=== PATIENT | female | born 1960 | race African-American/Black ===

== ENCOUNTER 2017-03-05 19:09 | Emergency (ER) | payer OTHER, MEDICAID ==
[~2017-03-05] VITALS: Ht 172.7 cm; Wt 99.0 kg
[2017-03-05 19:11] VITALS: BP 134/64; PULSE 91; RESP 16; TEMP 99.7; O2SAT 100
--- NOTE | 2017-03-05 21:37 | PD ---
Physical Exam Time Seen by Provider: 21:35 Narrative 56 y/o female here for evaluation of abdominal pain for months, worse for 2 days. Hx. of liver cancer, she reports chronic abdominal pain. Vital signs reviewed. Seen at triage desk. Awaiting bed placement. Data Data Last Documented VS Vital Signs Date Time Temp Pulse Resp B/P Pulse Ox O2 Delivery O2 Flow Rate FiO2 03/05/17 19:11 99.7 91 16 134/64 100 Room Air [facility] Medical Record Reviewed: Yes Supervised Visit with BRENNA: No Huy Polo Mar 05, 2017 21:37
--- NOTE | 2017-03-05 21:53 | PD ---
HPI Chief Complaint: Abdominal Pain Time Seen by Provider: 21:45 Travel History International Travel<30 days: No Contact w/Intl Traveler<30days: No Traveled to known affect area: No History of Present Illness HPI This is a 56-year-old female who has stage IV liver cancer who follows with Dr. Velazquez who presents to the emergency department with abdominal discomfort that's been worsening this evening. She says that she's been having abdominal pain like this for about 4 months and she takes oxycodone at home for it. Over the past 2 days she's been having difficulty controlling it with just her pain medicines. She did feel nauseous earlier today. She denies any fevers or chills. The pain is constant, cramping, worse on the right side, and worse with laying down. She most recently received chemotherapy 2 weeks ago. PFSH Past Medical History Narrative Medical stage IV liver cancer per patient Social History Tobacco Use: No Allergies-Medications (Allergen,Severity, Reaction): Coded Allergies: Ambien (Verified Allergy, Severe, Hallucinations, 03/05/17) Morphine (Verified Allergy, Intermediate, Hallucinations, 03/05/17) Contrast Media (Verified Allergy, Unknown, Anaphylaxis, 03/05/17) Reported Meds & Prescriptions Reported Meds & Active Scripts Active Reported Zofran (Ondansetron HCl) 8 Mg Tab 8 Mg PO DIRECTED Xanax (Alprazolam) Unknown Strength Tab Unknown Dose PO BID PRN Oxycodone (Oxycodone HCl) 30 Mg Tab 30 Mg PO Q8H PRN Ranitidine (Ranitidine HCl) 150 Mg Tab 150 Mg PO BID Lisinopril 20 Mg Tab 20 Mg PO DAILY Hycamtin (Topotecan) 1 Mg Cap 3.1 Mg PO DAILY Lexapro (Escitalopram Oxalate) 10 Mg Tab 10 Mg PO DAILY Review of Systems Except as stated in HPI: all other systems reviewed are Neg Physical Exam Narrative GENERAL:Well appearing, no acute distress SKIN: Focused skin assessment warm and dry. HEAD: Atraumatic. Normocephalic. EYES: Pupils equal and round. No injection or drainage. ENT: Moist mucous membranes NECK: Trachea midline. CARDIOVASCULAR: Regular rate and rhythm. No murmur appreciated.Port right upper chest wall RESPIRATORY: Clear to auscultation. Breath sounds equal bilaterally. GASTROINTESTINAL: Abdomen soft, tender to palpation in the right upper quadrant and right lower quadrant with guarding. MUSCULOSKELETAL: No obvious deformities. NEUROLOGICAL: Awake and alert. No obvious cranial nerve deficits. Moving all extremities PSYCHIATRIC: Appropriate mood and affect; insight and judgment normal. Data Data Last Documented VS Vital Signs Date Time Temp Pulse Resp B/P Pulse Ox O2 Delivery O2 Flow Rate FiO2 03/05/17 22:11 100 Room Air 03/05/17 19:11 99.7 91 16 134/64 Orders Complete Blood Count With Diff (03/05/17 21:51) Comprehensive Metabolic Panel (03/05/17 21:51) Lipase (03/05/17 21:51) Urinalysis - C+S If Indicated (03/05/17 21:51) Iv Access Insert/Monitor (03/05/17 21:51) Ecg Monitoring (03/05/17 21:51) Oximetry (03/05/17 21:51) Sodium Chloride 0.9% Flush (Ns Flush) (03/05/17 22:00) Hydromorphone Pf Inj (Dilaudid Pf Inj) (03/05/17 22:00) Ondansetron Inj (Zofran Inj) (03/05/17 22:00) Urine Culture (03/05/17 22:05) Lactic Acid (03/05/17 23:12) Blood Culture (03/05/17 23:12) Ceftriaxone Inj (Rocephin Inj) (03/05/17 23:15) Ct Abd/Pel W/O Iv Contrast (03/05/17 ) Hydromorphone Pf Inj (Dilaudid Pf Inj) (03/06/17 00:00) Labs Laboratory Tests Test 03/05/17 03/05/17 03/05/17 22:00 22:05 23:35 White Blood Count 16.0 TH/MM3 Red Blood Count 2.76 MIL/MM3 Hemoglobin 7.7 GM/DL Hematocrit 24.7 % Mean Corpuscular Volume 89.4 FL Mean Corpuscular Hemoglobin 27.9 PG Mean Corpuscular Hemoglobin 31.3 % Concent Red Cell Distribution Width 21.8 % Platelet Count 139 TH/MM3 Mean Platelet Volume 9.1 FL Neutrophils (%) (Auto) 76.8 % Lymphocytes (%) (Auto) 10.6 % Monocytes (%) (Auto) 12.2 % Eosinophils (%) (Auto) 0.2 % Basophils (%) (Auto) 0.2 % Neutrophils # (Auto) 12.3 TH/MM3 Lymphocytes # (Auto) 1.7 TH/MM3 Monocytes # (Auto) 1.9 TH/MM3 Eosinophils # (Auto) 0.0 TH/MM3 Basophils # (Auto) 0.0 TH/MM3 CBC Comment DIFF FINAL Differential Comment Sodium Level 136 MEQ/L Potassium Level 3.8 MEQ/L Chloride Level 102 MEQ/L Carbon Dioxide Level 23.5 MEQ/L Anion Gap 11 MEQ/L Blood Urea Nitrogen 14 MG/DL Creatinine 1.06 MG/DL Estimat Glomerular Filtration 64 ML/MIN Rate Random Glucose 118 MG/DL Calcium Level 9.3 MG/DL Total Bilirubin 0.3 MG/DL Aspartate Amino Transf 29 U/L (AST/SGOT) Alanine Aminotransferase 13 U/L (ALT/SGPT) Alkaline Phosphatase 150 U/L Total Protein 7.8 GM/DL Albumin 2.7 GM/DL Lipase 88 U/L Urine Color YELLOW Urine Turbidity HAZY Urine pH 7.0 Urine Specific [place] 1.019 Urine Protein TRACE mg/dL Urine Glucose (UA) NEG mg/dL Urine Ketones NEG mg/dL Urine Occult Blood NEG Urine Nitrite NEG Urine Bilirubin NEG Urine Urobilinogen LESS THAN 2.0 MG/DL Urine Leukocyte Esterase SMALL Urine RBC 2 /hpf Urine WBC 9 /hpf Urine Squamous Epithelial 1 /hpf Cells Urine Bacteria RARE /hpf Urine Hyaline Casts 1 /lpf Urine Mucus FEW /lpf Microscopic Urinalysis Comment CULTURE INDICATED Lactic Acid Level 2.9 mmol/L MDM Medical Decision Making Medical Screen Exam Complete: Yes Emergency Medical Condition: Yes Medical Record Reviewed: Yes (patient receives chemotherapy with Dr. Velazquez and last received chemotherapy 2 weeks ago) Interpretation(s) Temperature is 99.7, pulse is 91 Normotensive Leukocytosis 76% neutrophils Lactic acid is 2.9 Urinalysis: 9 white blood cells Last 24 hours Impressions Abdomen/Pelvis CT 03/05/17 0000 Signed Impressions: Service Date/Time: , March 05, 2017 23:16 - CONCLUSION: 1. There are multiple hypodense liver masses identified in this patient with history of known liver malignancy as well as regional lymphadenopathy. 2. No inflammatory changes are seen within the abdomen or pelvis. 3. Diverticulosis without diverticulitis. 4. Small fat containing umbilical hernia. Jan Wright MD Differential Diagnosis Bowel obstruction, liver cancer, chronic pain, spontaneous bacterial peritonitis , appendicitis, colitis Narrative Course This is a 56-year-old female who has a history of stage IV liver cancer who presents to the emergency department reporting increasing abdominal pain. She' s been having abdominal pain for months. She takes 30 mg of oxycodone 3 times a day for her pain. Her pain is similar to prior but worse. She's not reporting any fevers or infectious symptoms. Incidentally she does have a temperature of 99.7 and a leukocytosis of 16 which is increased from her prior labs several days ago. She does have a lactic acid of 2.9 and she has a mild urinary tract infection. CT abdomen and pelvis demonstrates liver cancer but no other acute process. I had a long conversation with the patient regarding inpatient versus outpatient management. She's not neutropenic so I think it would be reasonable for her to be managed as an outpatient. She really wants to go home and doesn't want to stay in the hospital. She looks really well and she came in more for her chronic pain exacerbation than any concern for infectious symptoms. Patient was given a dose of IV antibiotics here in the emergency department and a liter of IV hydration. I think it's reasonable to discharge her on antibiotics with strict return instructions if she starts developing fever or new symptoms at home. Diagnosis Primary Impression: Urinary tract infection Qualified Code: N30.00 - Acute cystitis without hematuria Additional Impression: Pain of metastatic malignancy Patient Instructions: General Instructions Additional Instructions: If you develop fever, persistent vomiting, back pain, or inability to eat return to the emergency department as your urine infection may have progressed to a kidney infection. Complete your antibiotics as prescribed. Stay well hydrated with Gatorade or water. Follow-up with Dr. Velazquez as soon as possible for a checkup. Med/Other Pt SpecificInfo: Prescription(s) given Scripts Ciprofloxacin 500 Mg [id number] Mg PO BID 7 Days Prov:Mónica Chicas MD 03/06/17 Disposition: 01 DISCHARGE HOME Condition: Stable Mónica Chicas MD Mar 05, 2017 21:53
[2017-03-05] MEDS ORDERED: SODIUM CHLORIDE 0.9% FLUSH 10 ML FLUSH IV FLUSH PRN (22:00)
[2017-03-05] MEDS ORDERED: HYDROmorphone HCL PF 1 MG/ML VIAL IV PUSH ONE (22:00)
[2017-03-05] MEDS ORDERED: ONDANSETRON HCL 4 MG/2 ML VIAL IV PUSH ONE (22:00)
[2017-03-05] MEDS ORDERED: LISI-515 PO (22:05)
[2017-03-05] MEDS ORDERED: HYCA1CAP PO (22:05)
[2017-03-05] MEDS ORDERED: OXYC30TA PO (22:05)
[2017-03-05] MEDS ORDERED: ALPR.25 PO (22:05)
[2017-03-05] MEDS ORDERED: ZOFR8TAB PO (22:05)
[2017-03-05] MEDS ORDERED: RANI150T PO (22:05)
[2017-03-05] MEDS ORDERED: LEXA10TA PO (22:05)
[2017-03-05 22:11] VITALS: O2SAT 100
[2017-03-05 22:46] LABS: AUTOMATED NEUTROPHIL # 12.3 TH/MM3 (1.8-7.7); BASOPHIL % 0.2 % (0.0-2.0); EOSINOPHIL % 0.2 % (0.0-4.0); HEMATOCRIT 24.7 % (35.0-46.0); HEMO FLAGS DIFF FINAL; LYMPH % 10.6 % (9.0-44.0); LYMPHOCYTE # 1.7 TH/MM3 (1.0-4.8); MEAN CELL VOLUME 89.4 FL (80.0-100.0); MEAN CORPUSCULAR HEMOGLOBIN 27.9 PG (27.0-34.0); MEAN CORPUSCULAR HGB CONC 31.3 % (32.0-36.0); MONO % 12.2 % (0.0-8.0); NEUT % 76.8 % (16.0-70.0); PLATELET COUNT 139 TH/MM3 (150-450); RED BLOOD COUNT 2.76 MIL/MM3 (4.00-5.30); RED CELL DISTRIBUTION WIDTH 21.8 % (11.6-17.2)
[2017-03-05 22:53] LABS: BACTERIA, URINE RARE /hpf; BLOOD, URINE NEG (NEG); COMMENT (UR) CULTURE INDICATED; CULTURE IF INDICATED CULTURE INDICATED; GLUCOSE,URINE NEG (NEG); HYALINE CAST, URINE 1 /lpf (RARE); KETONE, URINE NEG (NEG); MUCUS URINE FEW /lpf (OCC); NITRITE,URINE NEG (NEG); SQUAMOUS EPITHELIAL CELL URINE 1 /hpf (0-5); URINE COLOR YELLOW (YELLW/STRAW)
[2017-03-05 23:00] LABS: ANION GAP 11 MEQ/L (5-15); AST (GOT) 29 U/L (15-37); BICARBONATE 23.5 MEQ/L (21.0-32.0); BLOOD UREA NITROGEN 14 MG/DL (7-18); CHLORIDE 102 MEQ/L (98-107); GLOMERULAR FILTRATION RATE 64 ML/MIN (>89); POTASSIUM 3.8 MEQ/L (3.5-5.1); SODIUM (NA) 136 MEQ/L (136-145)
[2017-03-05 23:01] LABS: ALT (GPT) 13 U/L (10-53)
[2017-03-05 23:03] LABS: ALKALINE PHOSPHATASE 150 U/L (45-117); TOTAL BILIRUBIN ADULT 0.3 MG/DL (0.2-1.0)
[2017-03-05] MEDS ORDERED: cefTRIAXone INJ 1,000 MG in SODIUM CHLORIDE 0.9% INJ 100 ML IV ONE (23:15)
--- NOTE | 2017-03-05 23:46 | RADRPT ---
EXAM DATE/TIME: 03/05/2017 23:16 [facility] COMPARISON: No previous studies available for comparison. INDICATIONS : Diffuse abdominal pain. ORAL CONTRAST: No oral contrast ingested. RADIATION DOSE: 11.42 CTDIvol (mGy) MEDICAL HISTORY : Carcinoma, liver. SURGICAL HISTORY : None. ENCOUNTER: Initial ACUITY: 1 month PAIN SCALE: 5/10 LOCATION: All quadrants. TECHNIQUE: Volumetric scanning of the abdomen and pelvis was performed. Using automated exposure control and ad justment of the mA and/or kV according to patient size, radiation dose was kept as low as reasonably achievable to obtain optimal diagnostic quality images. DICOM format image data is available electro nically for review and comparison. FINDINGS: There are degenerative changes of the spine. The lung windows demonstrate a noncalcified nodule in th e right lower lobe measuring 3.7 mm on image 7, right middle lobe 2.8 mm nodule on image 5. There is a focal suspected at the right lung base with focal herniation of the dome of the liver seen best on coronal image 78 measuring 2.8 cm in transverse dimension on axial image 11. There are multiple ill-d efined low-attenuation mass is seen throughout the liver including ill-defined low-density in the rig ht lobe posteriorly measuring up to 9 x 6 cm. There is also cardiophrenic adenopathy measuring up to 2.2 cm in short axis dimension, and adenopathy at the esophageal hiatus measuring up to 1.6 x 3.3 cm. Aortocaval 1.1 cm short axis adenopathy identified. Urinary bladder is unremarkable. The patient is status post hysterectomy. There is diverticulosis of the sigmoid and descending colon without evidenc e of diverticulitis. Small fat containing umbilical hernia. Appendix normal. There are no adnexal mas ses. Atherosclerotic calcification of the aorta and iliac vessels are noted. CONCLUSION: 1. There are multiple hypodense liver masses identified in this patient with history of known liver m alignancy as well as regional lymphadenopathy. 2. No inflammatory changes are seen within the abdomen or pelvis. 3. Diverticulosis without diverticulitis. 4. Small fat containing umbilical hernia. Jan Wright MD on March 05, 2017 at 23:41 Board Certified Radiologist. This report was verified electronically.
[2017-03-06] MEDS ORDERED: HYDROmorphone HCL PF 1 MG/ML VIAL IV PUSH ONE
[2017-03-06] MEDS ORDERED: CIPR500T2 PO (00:29)
[2017-03-06] MEDS ORDERED: SODIUM CHLOR 0.9% 1000 ML INJ 1,000 ML IV SCH (00:30)
[2017-03-06 01:19] VITALS: BP 102/66
== END 2017-03-06 01:35 | disposition home or self-care (01) ==
LOC: NEPC 19:09
DX: N39.0 Urinary tract infection, site not specified (principal); R10.9 Unspecified abdominal pain; C22.8 Malignant neoplasm of liver, primary, unspecified as to type; R59.1 Generalized enlarged lymph nodes; K57.90 Diverticulosis of intestine, part unspecified, without perforation or abscess without bleeding; K42.9 Umbilical hernia without obstruction or gangrene; Z79.899 Other long term (current) drug therapy
CPT/HCPCS: 74176; 80053; 81001; 83605; 83690; 85025; 87040; 87086; 96361; 96365; 96375; 96376; 99285; J0696; J1170; J1642; J2405; J7030

== ENCOUNTER 2017-09-05 02:33 | Inpatient (IN) | payer OTHER, MEDICAID, MEDICARE ==
[2017-09-05] VITALS (7 sets, daily range): BP systolic 117–152; BP diastolic 57–99; PULSE 60–112; RESP 16–18; TEMP 96.5–98.6; O2SAT 96–99
[~2017-09-05 02:33] MED LIST: ALPR.25 PO; CIPR500T2 PO; HYCA1CAP PO; LEXA10TA PO; LISI-515 PO; OXYC30TA PO; RANI150T PO; ZOFR8TAB PO
[2017-09-05] MEDS ORDERED: PROT40TA PO (03:09)
--- NOTE | 2017-09-05 05:43 | PD ---
HPI Chief Complaint: Abdominal Pain Time Seen by Provider: 05:38 Travel History International Travel<30 days: No Contact w/Intl Traveler<30days: No Traveled to known affect area: No History of Present Illness HPI 57 year-old female presents to the emergency department by private transportation the care of family for evaluation of abdominal pain. Patient has had abdominal pain 3 years which is intermittent in nature. Patient was diagnosed 3 years ago with metastatic liver cancer with unknown primary. Patient has decided not to have chemotherapy. Patient is followed by oncologist Dr. Velazquez. Daughter this morning when patient complained of abdominal pain administered her pain medication because her pain was not immediately or quickly relieve she decided to come to the emergency room. Daughter is also concerned because she thinks mother was a little bit confused and has had elevated ammonia levels in the past or urinary tract infections in the past for similar symptoms so decided to bring her to the emergency room. Patient currently feels well is desirous of being discharged to home but is agreeable to have lab work obtained. Patient reports current discomfort is improved from presentation discomfort 9/10 in intensity. Patient so requesting pain medication. PFSH Past Medical History Narrative Medical Metastatic liver/hepatic cancer with unknown primary, hypertension and anxiety, exploratory laparotomy, rare alcohol use; nursing notes reviewed Cancer: Yes (liver) Diminished Hearing: No Past Surgical History Other Surgery: Yes (EX LAP) Social History Alcohol Use: Yes (rare) Tobacco Use: No Substance Use: No Allergies-Medications (Allergen,Severity, Reaction): Coded Allergies: zolpidem (Unverified Allergy, Severe, Hallucinations, 09/05/17) morphine (Unverified Allergy, Intermediate, Hallucinations, 09/05/17) diatrizoate meglumine (Unverified Allergy, Unknown, Anaphylaxis, 09/05/17) gadobenic acid (Unverified Allergy, Unknown, Anaphylaxis, 09/05/17) gadodiamide (Unverified Allergy, Unknown, Anaphylaxis, 09/05/17) gadoteridol (Unverified Allergy, Unknown, Anaphylaxis, 09/05/17) iodixanol (Unverified Allergy, Unknown, Anaphylaxis, 09/05/17) iohexol (Unverified Allergy, Unknown, Anaphylaxis, 09/05/17) Reported Meds & Prescriptions Reported Meds & Active Scripts Active Reported Protonix (Pantoprazole Sodium) 40 Mg Tab 40 Mg PO DAILY Xanax (Alprazolam) Unknown Strength Tab Unknown Dose PO BID PRN Oxycodone (Oxycodone HCl) 30 Mg Tab 30 Mg PO Q8H PRN Lisinopril 20 Mg Tab 20 Mg PO DAILY Lexapro (Escitalopram Oxalate) 10 Mg Tab 10 Mg PO DAILY Review of Systems Except as stated in HPI: all other systems reviewed are Neg General / Constitutional: No: Fever, Chills HENT: No: Congestion Cardiovascular: No: Chest Pain or Discomfort Gastrointestinal: Positive: Abdominal Pain, No: Nausea, Vomiting Genitourinary: No: Urgency, Frequency, Dysuria, Nocturia Musculoskeletal: No: Myalgias, Arthralgias Skin: No Rash Neurologic: No: Weakness Psychiatric: Positive: Anxiety Hematologic/Lymphatic: No: Easy Bruising Physical Exam Narrative GENERAL: Well-developed well-nourished female in no acute distress no respiratory distress SKIN: Warm and dry. HEAD: Normocephalic. EYES: No scleral icterus. No injection or drainage. NECK: Supple, trachea midline. No JVD or lymphadenopathy. CARDIOVASCULAR: Regular rate and rhythm without murmurs, gallops, or rubs. RESPIRATORY: Breath sounds equal bilaterally. No accessory muscle use. GASTROINTESTINAL: Abdomen soft, non-tender, hepatomegaly, nondistended. MUSCULOSKELETAL: No cyanosis, or edema. BACK: Nontender without obvious deformity. No CVA tenderness. Data Data Last Documented VS Vital Signs Date Time Temp Pulse Resp B/P (MAP) Pulse Ox O2 Delivery O2 Flow Rate FiO2 09/05/17 02:35 98.3 112 18 140/65 (90) 98 Orders Orders Complete Blood Count With Diff (09/05/17 05:10) Comprehensive Metabolic Panel (09/05/17 05:10) Urinalysis - C+S If Indicated (09/05/17 05:10) Iv Access Insert/Monitor (09/05/17 05:10) Oxygen Administration (09/05/17 05:10) Oximetry (09/05/17 05:10) Lipase (09/05/17 05:10) Ammonia (09/05/17 05:10) Ondansetron Inj (Zofran Inj) (09/05/17 05:45) Hydromorphone Pf Inj (Dilaudid Pf Inj) (09/05/17 05:45) Ct Abd/Pel W/O Iv Contrast (09/05/17 ) Labs Laboratory Tests Test 09/05/17 05:15 09/05/17 05:20 White Blood Count 16.7 TH/MM3 Red Blood Count 2.86 MIL/MM3 Hemoglobin 9.6 GM/DL Hematocrit 29.5 % Mean Corpuscular Volume 102.9 FL Mean Corpuscular Hemoglobin 33.6 PG Mean Corpuscular Hemoglobin Concent 32.7 % Red Cell Distribution Width 21.9 % Platelet Count 132 TH/MM3 Mean Platelet Volume 9.3 FL Neutrophils (%) (Auto) 81.3 % Lymphocytes (%) (Auto) 8.0 % Monocytes (%) (Auto) 9.4 % Eosinophils (%) (Auto) 1.1 % Basophils (%) (Auto) 0.2 % Neutrophils # (Auto) 13.6 TH/MM3 Lymphocytes # (Auto) 1.3 TH/MM3 Monocytes # (Auto) 1.6 TH/MM3 Eosinophils # (Auto) 0.2 TH/MM3 Basophils # (Auto) 0.0 TH/MM3 CBC Comment DIFF FINAL Differential Comment Blood Urea Nitrogen 7 MG/DL Creatinine 0.66 MG/DL Random Glucose 98 MG/DL Total Protein 9.3 GM/DL Albumin 2.4 GM/DL Calcium Level 8.9 MG/DL Alkaline Phosphatase 296 U/L Aspartate Amino Transf (AST/SGOT) 57 U/L Alanine Aminotransferase (ALT/SGPT) 11 U/L Total Bilirubin 0.9 MG/DL Sodium Level 136 MEQ/L Potassium Level 3.6 MEQ/L Chloride Level 104 MEQ/L Carbon Dioxide Level 24.7 MEQ/L Anion Gap 7 MEQ/L Estimat Glomerular Filtration Rate 111 ML/MIN Ammonia 32 MCMOL/L Lipase 128 U/L Urine Color YELLOW Urine Turbidity CLEAR Urine pH 6.0 Urine Specific [place] 1.033 Urine Protein 30 mg/dL Urine Glucose (UA) NEG mg/dL Urine Ketones NEG mg/dL Urine Occult Blood NEG Urine Nitrite NEG Urine Bilirubin NEG Urine Urobilinogen 2.0 MG/DL Urine Leukocyte Esterase NEG Urine RBC 1 /hpf Urine WBC 1 /hpf Urine Squamous Epithelial Cells <1 /hpf Urine Hyaline Casts 1 /lpf Urine Mucus FEW /lpf Microscopic Urinalysis Comment CULT NOT INDICATED MDM Medical Decision Making Medical Screen Exam Complete: Yes Emergency Medical Condition: Yes Medical Record Reviewed: Yes Interpretation(s) CBC & BMP Diagram 1/13/18 05:15 Total Protein 9.3 H, Albumin 2.4 L, Calcium Level 8.9, Alkaline Phosphatase 296 H, Aspartate Amino Transf (AST/SGOT) 57 H, Alanine Aminotransferase (ALT/SGPT) 11, Total Bilirubin 0.9 Vital Signs Date Time Temp Pulse Resp B/P (MAP) Pulse Ox O2 Delivery O2 Flow Rate FiO2 09/05/17 02:35 98.3 112 18 140/65 (90) 98 ua: wnl nh3: 32, not elevated Differential Diagnosis Hyperammonemia, UTI, sepsis, bowel obstruction, viscus perforation, diverticulitis Narrative Course IV access obtained specimens collected and sent for resulting patient administered Zofran 4 mg IV and Dilaudid 0.5 mg IV Patient identified to have leukocytosis of unclear etiology with unremarkable urinalysis Will proceed with CT abdomen and pelvis if this does not identify specific source of white count suspect that this may be a stress reaction and patient has chronic abdominal pain 3 years and pain is actually improved at this time. Diagnosis Primary Impression: Pain of metastatic malignancy Shanique Dodge MD Sep 05, 2017 05:43
[2017-09-05] MEDS ORDERED: ONDANSETRON HCL 4 MG/2 ML VIAL IV PUSH ONE ×2 (05:45→09:00)
[2017-09-05] MEDS ORDERED: HYDROmorphone HCL PF 1 MG/ML VIAL IV PUSH ONE ×2 (05:45→11:30)
[2017-09-05 06:06] LABS: AUTOMATED NEUTROPHIL # 13.6 TH/MM3 (1.8-7.7); BASOPHIL % 0.2 % (0.0-2.0); EOSINOPHIL # 0.2 TH/MM3 (0-0.4); EOSINOPHIL % 1.1 % (0.0-4.0); HEMATOCRIT 29.5 % (35.0-46.0); HEMOGLOBIN 9.6 GM/DL (11.6-15.3); LYMPHOCYTE # 1.3 TH/MM3 (1.0-4.8); MEAN CELL VOLUME 102.9 FL (80.0-100.0); MEAN CORPUSCULAR HEMOGLOBIN 33.6 PG (27.0-34.0); MEAN CORPUSCULAR HGB CONC 32.7 % (32.0-36.0); MEAN PLATELET VOLUME 9.3 FL (7.0-11.0); MONO % 9.4 % (0.0-8.0); MONOCYTE # 1.6 TH/MM3 (0-0.9); NEUT % 81.3 % (16.0-70.0); PLATELET COUNT 132 TH/MM3 (150-450); RED BLOOD COUNT 2.86 MIL/MM3 (4.00-5.30); RED CELL DISTRIBUTION WIDTH 21.9 % (11.6-17.2); WHITE BLOOD COUNT 16.7 TH/MM3 (4.0-11.0)
[2017-09-05 06:23] LABS: BILIRUBIN, URINE NEG (NEG); BLOOD, URINE NEG (NEG); GLUCOSE,URINE NEG (NEG); HYALINE CAST, URINE 1 /lpf (RARE); KETONE, URINE NEG (NEG); MUCUS URINE FEW /lpf (OCC); NITRITE,URINE NEG (NEG); SQUAMOUS EPITHELIAL CELL URINE <1 /hpf (0-5); URINE COLOR YELLOW (YELLW/STRAW); URINE LEUKOCYTE ESTERASE NEG (NEG)
[2017-09-05 06:32] LABS: ALBUMIN 2.4 GM/DL (3.4-5.0); ALT (GPT) 11 U/L (10-53); AST (GOT) 57 U/L (15-37); BICARBONATE 24.7 MEQ/L (21.0-32.0); BLOOD UREA NITROGEN 7 MG/DL (7-18); CALCIUM 8.9 MG/DL (8.5-10.1); CHLORIDE 104 MEQ/L (98-107); CREATININE 0.66 MG/DL (0.50-1.00); GLOMERULAR FILTRATION RATE 111 ML/MIN (>89); GLUCOSE,RANDOM 98 MG/DL (74-106); LIPASE 128 U/L (73-393); SODIUM (NA) 136 MEQ/L (136-145)
[2017-09-05 06:34] LABS: ALKALINE PHOSPHATASE 296 U/L (45-117); TOTAL BILIRUBIN ADULT 0.9 MG/DL (0.2-1.0); TOTAL PROTEIN 9.3 GM/DL (6.4-8.2)
--- NOTE | 2017-09-05 08:04 | RADRPT ---
EXAM DATE/TIME: 09/05/2017 07:13 [facility] COMPARISON: CT ABDOMEN & PELVIS W/O CONTRAST, March 05, 2017, 23:16. INDICATIONS : Diffuse abdominal pain; history of liver metastases with no treatment. ORAL CONTRAST: No oral contrast ingested. RADIATION DOSE: 9.03 CTDIvol (mGy) MEDICAL HISTORY : Carcinoma, not otherwise specified. Metastatic, liver. SURGICAL HISTORY : None. ENCOUNTER: Initial ACUITY: 2 days PAIN SCALE: 8/10 LOCATION: Bilateral abdomen. TECHNIQUE: Volumetric scanning of the abdomen and pelvis was performed. Using automated exposure control and ad justment of the mA and/or kV according to patient size, radiation dose was kept as low as reasonably achievable to obtain optimal diagnostic quality images. DICOM format image data is available electro nically for review and comparison. FINDINGS: LOWER LUNGS: Mild patchy opacity of the lung bases. Several subcentimeter pulmonary nodular densities are identifi ed including 6 mm nodule in the anterior right lung base on image #10, 4 mm nodular density in medial right lower lobe on image #13 and 4 mm nodular density in the left lower lobe on image #5. Pericardi ophrenic lymph node now measures 2.7 cm compared to 2.2 cm on the prior study. LIVER: Multiple hepatic masses again identified. Findings are very similar to the prior study of 03/05/2017. Mass in the central left lobe on image #15 measures 5.4 cm compared to 5.5 cm on the prior study. Con fluent mass in the posterior right lobe measures 9.6 cm in AP dimension and also measured 9.6 cm on t he prior study. Focal eventration of the hemidiaphragm is again seen. Distended gallbladder is filled with contrast. SPLEEN: Normal size without lesion. PANCREAS: Within normal limits. KIDNEYS: Left upper pole renal cortical calcification unchanged. No evidence of hydronephrosis or right or lef t. ADRENAL GLANDS: Within normal limits. VASCULAR: There is no aortic aneurysm. BOWEL/MESENTERY: No evidence of bowel dilatation. No free air. Appendix within normal limits. Small amount of ascites in the upper quadrants bilaterally. ABDOMINAL WALL: Within normal limits. RETROPERITONEUM: Enlarged portacaval lymph node measures 1.6 cm compared to 1.1 cm on prior study. BLADDER: No wall thickening or mass. REPRODUCTIVE: Within normal limits. INGUINAL: There is no lymphadenopathy or hernia. MUSCULOSKELETAL: There is a lucent bone lesion in the T10 vertebral body measuring 2.3 x 2.0 cm. There is evidence of some extension into the central canal a possible central canal narrowing. Erosion of the posterior ma rgin of the vertebral body is seen. 4.1 cm lucent bone lesion is seen in the right iliac wing. CONCLUSION: 1. Bony metastatic disease is now seen with a lucent lesion in the posterior aspect of the T10 verteb ral body eroding the posterior margin of the vertebral body and resulting in possible central canal n arrowing. This finding could be further evaluated with thoracic spine MRI with contrast. Right iliac wing lucent metastatic bone lesion also seen. These findings are a change from the prior study. 2. Diffuse hepatic metastatic disease again seen with no significant interval change. 3. Small amount of ascites now seen in the upper abdomen. 4. Increase in size of pericardiophrenic lymph node and portacaval lymph node. 5. Nonspecific distended gallbladder filled with contrast. Clay Jiang MD on September 05, 2017 at 7:39 Board Certified Radiologist. This report was verified electronically.
[2017-09-05] MEDS ORDERED: LORazepam 2 MG/ML VIAL IV PUSH ONE (09:45)
[2017-09-05] MEDS ORDERED: GADODIAMIDE PF 287 MG/ML 20 ML VIAL (for RAD MRI) IVCONTRAST ONE (10:07)
--- NOTE | 2017-09-05 10:41 | RADRPT ---
EXAM DATE/TIME: 09/05/2017 09:33 [facility] COMPARISON: No previous studies available for comparison. INDICATIONS : Metastatic disease. Liver cancer. CONTRAST: 20 cc Omniscan (gadodiamide) IV MEDICAL HISTORY : Metastatic, liver. SURGICAL HISTORY : Spinal surgery x 2. ENCOUNTER: Initial ACUITY: 1 day PAIN SCORE: 6/10 LOCATION: [facility] TECHNIQUE: Multiplanar multisequence MRI of the thoracic spine was performed. FINDINGS: VERTEBRA: There is focal bone marrow signal abnormality of the posterior one half of the T. 10 vertebral body d emonstrating hyperintensity on the T2-weighted images, isointensity on the precontrast T1-weighted im ages and diffuse enhancement on postcontrast images. It measures 2.7 x 2.2 cm in axial dimensions. Th ere is extension posteriorly of the enhancing mass into the central canal. It abuts the anterior aspe ct of the spinal cord. CSF remains visible posteriorly. Minimal intermediate signal is seen within th e spinal cord at this level. No other focal bone marrow signal abnormalities identified. There is a fluid filled cavity in the spinal cord at the level of T5 measuring 1.3 cm in craniocaudal dimension and 5 mm in width. Finding indicates a syrinx. Central canal diameter is within normal [place] its at this level. ALIGNMENT: Normal. CORD: Normal position and configuration. POST CONTRAST: No abnormal areas of contrast enhancement seen. Central canal diameter within normal limits at all other levels. Multiple pulmonary nodules noted. CONCLUSION: 1. 2.7 cm bone lesion in the posterior aspect of the T10 vertebral body resulting in mild expansion o f the vertebral body posteriorly and extension of the mass into the central canal. There is some narr owing of the central canal with effacement of the CSF anteriorly at this level and abutment of the sp inal cord. Posteriorly CSF remains visible. Minimal spinal cord signal abnormality at this level. The re is also mild epidural extension of the enhancement anteriorly on the right along the posterior mar gins of the T9 and T11 vertebral bodies. 2. Syrinx is identified at the T5 level. Clay Jiang MD on September 05, 2017 at 10:31 Board Certified Radiologist. This report was verified electronically.
--- NOTE | 2017-09-05 10:47 | RADRPT ---
EXAM DATE/TIME: 09/05/2017 09:33 [place] COMPARISON: CT ABDOMEN & PELVIS W/O CONTRAST, September 05, 2017, 7:13. INDICATIONS : Metastatic disease. Liver cancer. CONTRAST: 20 cc Omniscan (gadodiamide) IV MEDICAL HISTORY : Metastatic, liver. SURGICAL HISTORY : Spinal surgery x 2. ENCOUNTER: Initial ACUITY: 1 day PAIN SCORE: 6/10 LOCATION: [facility] TECHNIQUE: Multiplanar multisequence MRI of the lumbar spine was performed with and without contrast. FINDINGS: Bone alignment within normal limits. There is expansile enhancing bone lesion in the right iliac wing partially visualized. No other focal bone marrow signal abnormalities identified. Right paracentral and lateral disc protrusion at L5-S1 results in moderate right lateral recess narro wing and mild right neural foraminal narrowing. Mild left neural foraminal narrowing also noted at th is level. Bilateral facet arthrosis at this level. No other focal disc protrusions identified. Centra l canal diameter is within normal limits at all levels. Neural foraminal diameters are within normal limits at all other levels. Conus medullaris within normal limits. No other abnormal enhancement identified. CONCLUSION: 1. No metastatic lesions identified in the lumbar spine region. There is a metastatic bone lesion in the right iliac wing. This is partially visualized. 2. Right-sided disc protrusion at L5-S1 resulting in right lateral recess narrowing and mild bilatera l neural foraminal narrowing. Clay Jiang MD on September 05, 2017 at 10:41 Board Certified Radiologist. This report was verified electronically.
--- NOTE | 2017-09-05 11:42 | PD ---
Physical Exam Narrative Patient signed out to me by Dr. Dodge. Please see her documentation for complete details. Briefly, patient is a 57 year old female with metastatic cancer who comes in complaining of pain to her abdomen. She is not currently receiving chemo therapy. Exam shows no spinal tenderness. She is able to walk without difficulty. No neurologic abnormalities. Data Data Last Documented VS Vital Signs Date Time Temp Pulse Resp B/P (MAP) Pulse Ox O2 Delivery O2 Flow Rate FiO2 09/05/17 07:46 60 16 152/99 (116) 97 Room Air 09/05/17 02:35 98.3 Orders Orders Complete Blood Count With Diff (09/05/17 05:10) Comprehensive Metabolic Panel (09/05/17 05:10) Urinalysis - C+S If Indicated (09/05/17 05:10) Iv Access Insert/Monitor (09/05/17 05:10) Oxygen Administration (09/05/17 05:10) Oximetry (09/05/17 05:10) Lipase (09/05/17 05:10) Ammonia (09/05/17 05:10) Ondansetron Inj (Zofran Inj) (09/05/17 05:45) Hydromorphone Pf Inj (Dilaudid Pf Inj) (09/05/17 05:45) Ct Abd/Pel W/O Iv Contrast (09/05/17 ) Ondansetron Inj (Zofran Inj) (09/05/17 09:00) Mri L Spine W&W/O Contrast (09/05/17 ) Mri T Spine W & W/O Contrast (09/05/17 ) Lorazepam Inj (Ativan Inj) (09/05/17 09:45) Gadodiamide Pf Inj (Omniscan Pf Inj) (09/05/17 10:07) Hydromorphone Pf Inj (Dilaudid Pf Inj) (09/05/17 11:30) Admit Order (Ed Use Only) (09/05/17 ) Labs Laboratory Tests Test 09/05/17 05:15 09/05/17 05:20 White Blood Count 16.7 TH/MM3 Red Blood Count 2.86 MIL/MM3 Hemoglobin 9.6 GM/DL Hematocrit 29.5 % Mean Corpuscular Volume 102.9 FL Mean Corpuscular Hemoglobin 33.6 PG Mean Corpuscular Hemoglobin Concent 32.7 % Red Cell Distribution Width 21.9 % Platelet Count 132 TH/MM3 Mean Platelet Volume 9.3 FL Neutrophils (%) (Auto) 81.3 % Lymphocytes (%) (Auto) 8.0 % Monocytes (%) (Auto) 9.4 % Eosinophils (%) (Auto) 1.1 % Basophils (%) (Auto) 0.2 % Neutrophils # (Auto) 13.6 TH/MM3 Lymphocytes # (Auto) 1.3 TH/MM3 Monocytes # (Auto) 1.6 TH/MM3 Eosinophils # (Auto) 0.2 TH/MM3 Basophils # (Auto) 0.0 TH/MM3 CBC Comment DIFF FINAL Differential Comment Blood Urea Nitrogen 7 MG/DL Creatinine 0.66 MG/DL Random Glucose 98 MG/DL Total Protein 9.3 GM/DL Albumin 2.4 GM/DL Calcium Level 8.9 MG/DL Alkaline Phosphatase 296 U/L Aspartate Amino Transf (AST/SGOT) 57 U/L Alanine Aminotransferase (ALT/SGPT) 11 U/L Total Bilirubin 0.9 MG/DL Sodium Level 136 MEQ/L Potassium Level 3.6 MEQ/L Chloride Level 104 MEQ/L Carbon Dioxide Level 24.7 MEQ/L Anion Gap 7 MEQ/L Estimat Glomerular Filtration Rate 111 ML/MIN Ammonia 32 MCMOL/L Lipase 128 U/L Urine Color YELLOW Urine Turbidity CLEAR Urine pH 6.0 Urine Specific [place] 1.033 Urine Protein 30 mg/dL Urine Glucose (UA) NEG mg/dL Urine Ketones NEG mg/dL Urine Occult Blood NEG Urine Nitrite NEG Urine Bilirubin NEG Urine Urobilinogen 2.0 MG/DL Urine Leukocyte Esterase NEG Urine RBC 1 /hpf Urine WBC 1 /hpf Urine Squamous Epithelial Cells <1 /hpf Urine Hyaline Casts 1 /lpf Urine Mucus FEW /lpf Microscopic Urinalysis Comment CULT NOT INDICATED MDM Supervised Visit with BRENNA: No Narrative Course CT abdomen and pelvis performed shows lesly metastasis with concern for spinal cord impingement. MRI of the thoracic and lumbar spine performed. Last 24 hours Impressions Thoracic Spine MRI 09/05/17 0000 Signed Impressions: Service Date/Time: Tuesday, September 05, 2017 09:33 - CONCLUSION: 1. 2.7 cm bone lesion in the posterior aspect of the T10 vertebral body resulting in mild expansion of the vertebral body posteriorly and extension of the mass into the central canal. There is some narrowing of the central canal with effacement of the CSF anteriorly at this level and abutment of the spinal cord. Posteriorly CSF remains visible. Minimal spinal cord signal abnormality at this level. There is also mild epidural extension of the enhancement anteriorly on the right along the posterior margins of the T9 and T11 vertebral bodies. 2. Syrinx is identified at the T5 level. Clay Jiang MD Lumbar Spine MRI 09/05/17 0000 Signed Impressions: Service Date/Time: Tuesday, September 05, 2017 09:33 - CONCLUSION: 1. No metastatic lesions identified in the lumbar spine region. There is a metastatic bone lesion in the right iliac wing. This is partially visualized. 2. Right-sided disc protrusion at L5-S1 resulting in right lateral recess narrowing and mild bilateral neural foraminal narrowing. Clay Jiang MD Abdomen/Pelvis CT 09/05/17 0000 Signed Impressions: Service Date/Time: Tuesday, September 05, 2017 07:13 - CONCLUSION: 1. Bony metastatic disease is now seen with a lucent lesion in the posterior aspect of the T10 vertebral body eroding the posterior margin of the vertebral body and resulting in possible central canal narrowing. This finding could be further evaluated with thoracic spine MRI with contrast. Right iliac wing lucent metastatic bone lesion also seen. These findings are a change from the prior study. 2. Diffuse hepatic metastatic disease again seen with no significant interval change. 3. Small amount of ascites now seen in the upper abdomen. 4. Increase in size of pericardiophrenic lymph node and portacaval lymph node. 5. Nonspecific distended gallbladder filled with contrast. Clay Jiang MD I spoke with Dr. Woo of neurosurgery who says the patient would benefit from radiation. Heme/onc paged and advises admission and radiation therapy. Patient admitted for further management. Diagnosis Primary Impression: Pain of metastatic malignancy Additional Impression: Spinal cord lesion Admitting Information Admitting Physician Requests: Admit Tomasa Alvarez MD Sep 05, 2017 11:42
[2017-09-05] MEDS: SODIUM CHLOR 0.9% 1000 ML INJ 1,000 ML IV SCH ×2 (12:00→17:42)
--- NOTE | 2017-09-05 12:22 | HHI.HP ---
[facility] Deidre Espinoza MD Admission Diagnosis spinal cord compression, metastatic cancer Diagnoses: Chief Complaint: Spinal Cord Compression Travel History International Travel<30 Days: No Contact w/Intl Traveler <30 Da: No Traveled to Known Affected Are: No History of Present Illness This is a pleasant 57 y/o female who came to ER for evaluation of abdominal pain , abdominal pain for the last three days, intermittent in nature She has diagnosis of Metastatic Liver cancer with known primary, decided not to have chemotherapy, she is been followed by financial assistance specialist Doctor Marcus, also developed some grisel of Encephalopathy, Daughter concerned about the possible Ammonia level elevation that she had already in the past, Urinary tract infection due to similar symptoms, so decided to bring her to ER, She states that the pain in her abdomen is intermittent this time started yesterday with intensity of 7/10, Sharp sensation, on inferior quadrants in her abdomen, has it for 3 years. in Emergency room found Bony metastatic lesion in the posterior aspect of the T10 vertebral body eroding the posterior margin of the vertebral body and resulting in possible central canal narrowing, small amount of ascites in the upper abdomen, increased in size of pericardiophrenic lymph node and portacaval Discussed by ER physician with Neurosurgery specialist and did recommended Radiation no surgical management, as per Doctor Skylar Stephenson cash control specialist he will see the patient hospitalized and give recommendations. Review of Systems Constitutional: DENIES: Fever, Chills, Change in appetite Endocrine: DENIES: Heat/cold intolerance Eyes: DENIES: Blurred vision, Eye pain Gastrointestinal: COMPLAINS OF: Abdominal pain Except as stated in HPI: all other systems reviewed are Neg Past Family Social History Past Medical History Metastatic Liver cancer with unknown primary Hypertension Anxiety disorder Past Surgical History Exploratory Laparotomy Reported Medications Reported Meds & Active Scripts Active Reported Protonix (Pantoprazole Sodium) 40 Mg Tab 40 Mg PO DAILY Xanax (Alprazolam) Unknown Strength Tab Unknown Dose PO BID PRN Oxycodone (Oxycodone HCl) 30 Mg Tab 30 Mg PO Q8H PRN Lisinopril 20 Mg Tab 20 Mg PO DAILY Lexapro (Escitalopram Oxalate) 10 Mg Tab 10 Mg PO DAILY Allergies: Coded Allergies: zolpidem (Unverified Allergy, Severe, Hallucinations, 09/05/17) morphine (Unverified Allergy, Intermediate, Hallucinations, 09/05/17) diatrizoate meglumine (Unverified Allergy, Unknown, Anaphylaxis, 09/05/17) gadobenic acid (Unverified Allergy, Unknown, Anaphylaxis, 09/05/17) gadodiamide (Unverified Allergy, Unknown, Anaphylaxis, 09/05/17) gadoteridol (Unverified Allergy, Unknown, Anaphylaxis, 09/05/17) iodixanol (Unverified Allergy, Unknown, Anaphylaxis, 09/05/17) iohexol (Unverified Allergy, Unknown, Anaphylaxis, 09/05/17) Active Ordered Medications Current Medications Medications (Trade) Dose Ordered Sig/Ambrosio Route Start Time Stop Time Status Last Admin Sodium Chloride 1,000 ml @ 42 mls/hr [id number] IV 09/05/17 12:00 (NS Flush) 2 ml UNSCH PRN IV FLUSH 09/05/17 12:30 (NS Flush) 2 ml BID IV FLUSH 09/05/17 21:00 (Tylenol) 650 mg Q4H PRN PO 09/05/17 12:30 (Zofran Inj) 4 mg Q6H PRN IVP 09/05/17 12:30 (Narcan Inj) 0.4 mg UNSCH PRN IV PUSH 09/05/17 12:30 (Senokot) 17.2 mg Q12H PRN PO 09/05/17 12:30 (Dulcolax Supp) 10 mg DAILY PRN RECTAL 09/05/17 12:30 (Lactulose Liq) 30 ml DAILY PRN PO 09/05/17 12:30 Family History Mother and Brother with Stomach Cancer. Social History Lives with her Daughter and denies any toxic habits. Physical Exam Vital Signs Vital Signs Date Time Temp Pulse Resp B/P (MAP) Pulse Ox O2 Delivery O2 Flow Rate FiO2 09/05/17 07:46 60 16 152/99 (116) 97 Room Air 09/05/17 02:35 98.3 112 18 140/65 (90) 98 Physical Exam GENERAL: Obese patient in no acute distress. SKIN: Warm and dry. HEAD: Normocephalic. EYES: No scleral icterus. No injection or drainage. NECK: Supple, trachea midline. No JVD or lymphadenopathy. CARDIOVASCULAR: Regular rate and rhythm without murmurs, gallops, or rubs. RESPIRATORY: Breath sounds equal bilaterally. No accessory muscle use. GASTROINTESTINAL: Abdomen soft, non-tender, hepatomegaly, nondistended. MUSCULOSKELETAL: No cyanosis, or edema. BACK: Nontender without obvious deformity. No CVA tenderness. Laboratory Laboratory Tests Test 09/05/17 05:15 09/05/17 05:20 White Blood Count 16.7 Red Blood Count 2.86 Hemoglobin 9.6 Hematocrit 29.5 Mean Corpuscular Volume 102.9 Mean Corpuscular Hemoglobin 33.6 Mean Corpuscular Hemoglobin Concent 32.7 Red Cell Distribution Width 21.9 Platelet Count 132 Mean Platelet Volume 9.3 Neutrophils (%) (Auto) 81.3 Lymphocytes (%) (Auto) 8.0 Monocytes (%) (Auto) 9.4 Eosinophils (%) (Auto) 1.1 Basophils (%) (Auto) 0.2 Neutrophils # (Auto) 13.6 Lymphocytes # (Auto) 1.3 Monocytes # (Auto) 1.6 Eosinophils # (Auto) 0.2 Basophils # (Auto) 0.0 CBC Comment DIFF FINAL Differential Comment Blood Urea Nitrogen 7 Creatinine 0.66 Random Glucose 98 Total Protein 9.3 Albumin 2.4 Calcium Level 8.9 Alkaline Phosphatase 296 Aspartate Amino Transf (AST/SGOT) 57 Alanine Aminotransferase (ALT/SGPT) 11 Total Bilirubin 0.9 Sodium Level 136 Potassium Level 3.6 Chloride Level 104 Carbon Dioxide Level 24.7 Anion Gap 7 Estimat Glomerular Filtration Rate 111 Ammonia 32 Lipase 128 Urine Color YELLOW Urine Turbidity CLEAR Urine pH 6.0 Urine Specific [place] 1.033 Urine Protein 30 Urine Glucose (UA) NEG Urine Ketones NEG Urine Occult Blood NEG Urine Nitrite NEG Urine Bilirubin NEG Urine Urobilinogen 2.0 Urine Leukocyte Esterase NEG Urine RBC 1 Urine WBC 1 Urine Squamous Epithelial Cells <1 Urine Hyaline Casts 1 Urine Mucus FEW Microscopic Urinalysis Comment CULT NOT INDICATED Result Diagram: 09/05/17 0515 09/05/17 0515 Imaging Last Impressions Thoracic Spine MRI 09/05/17 0000 Signed Impressions: Service Date/Time: Tuesday, September 05, 2017 09:33 - CONCLUSION: 1. 2.7 cm bone lesion in the posterior aspect of the T10 vertebral body resulting in mild expansion of the vertebral body posteriorly and extension of the mass into the central canal. There is some narrowing of the central canal with effacement of the CSF anteriorly at this level and abutment of the spinal cord. Posteriorly CSF remains visible. Minimal spinal cord signal abnormality at this level. There is also mild epidural extension of the enhancement anteriorly on the right along the posterior margins of the T9 and T11 vertebral bodies. 2. Syrinx is identified at the T5 level. Clay Jiang MD Lumbar Spine MRI 09/05/17 0000 Signed Impressions: Service Date/Time: Tuesday, September 05, 2017 09:33 - CONCLUSION: 1. No metastatic lesions identified in the lumbar spine region. There is a metastatic bone lesion in the right iliac wing. This is partially visualized. 2. Right-sided disc protrusion at L5-S1 resulting in right lateral recess narrowing and mild bilateral neural foraminal narrowing. Clay Jiang MD Abdomen/Pelvis CT 09/05/17 0000 Signed Impressions: Service Date/Time: Tuesday, September 05, 2017 07:13 - CONCLUSION: 1. Bony metastatic disease is now seen with a lucent lesion in the posterior aspect of the T10 vertebral body eroding the posterior margin of the vertebral body and resulting in possible central canal narrowing. This finding could be further evaluated with thoracic spine MRI with contrast. Right iliac wing lucent metastatic bone lesion also seen. These findings are a change from the prior study. 2. Diffuse hepatic metastatic disease again seen with no significant interval change. 3. Small amount of ascites now seen in the upper abdomen. 4. Increase in size of pericardiophrenic lymph node and portacaval lymph node. 5. Nonspecific distended gallbladder filled with contrast. Clay Jiang MD Caprini VTE Risk Assessment Caprini VTE Risk Assessment: Mod/High Risk (score >= 2) Caprini Risk Assessment Model Point Value = 1 Point Value = 2 Point Value = 3 Point Value = 5 Age 41-60 Minor surgery BMI > 25 kg/m2 Swollen legs Varicose veins or History of unexplained or recurrent spontaneous Oral contraceptives or hormone replacement Sepsis (< 1 month) Serious lung disease, including pneumonia (< 1 month) Abnormal pulmonary function Acute myocardial infarction Congestive heart failure (< 1 month) History of inflammatory bowel disease Medical patient at bed rest Age 61-74 Arthroscopic surgery Major open surgery (> 45 min) Laparoscopic surgery (> 45 min) Malignancy Confined to bed (> 72 hours) Immobilizing plaster cast Central venous access Age >= 75 History of VTE Family history of VTE Factor V Leiden Prothrombin [id number] Lupus anticoagulant Anticardiolipin antibodies Elevated serum homocysteine Heparin-induced thrombocytopenia Other congenital or acquired thrombophilia Stroke (< 1 month) Elective arthroplasty Hip, pelvis, or leg fracture Acute spinal cord injury (< 1 month) Prophylaxis Regimen Total Risk Factor Score Risk Level Prophylaxis Regimen 0-1 Low Early ambulation 2 Moderate Order ONE of the following: *Sequential Compression Device (SCD) *Heparin 5000 units SQ BID 3-4 Higher Order ONE of the following medications: *Heparin 5000 units SQ TID *Enoxaparin/Lovenox 40 mg SQ daily (WT < 150 kg, CrCl > 30 mL/min) *Enoxaparin/Lovenox 30 mg SQ daily (WT < 150 kg, CrCl > 10-29 mL/min) *Enoxaparin/Lovenox 30 mg SQ BID (WT < 150 kg, CrCl > 30 mL/min) AND/OR *Sequential Compression Device (SCD) 5 or more Highest Order ONE of the following medications: *Heparin 5000 units SQ TID (Preferred with Epidurals) *Enoxaparin/Lovenox 40 mg SQ daily (WT < 150 kg, CrCl > 30 mL/min) *Enoxaparin/Lovenox 30 mg SQ daily (WT < 150 kg, CrCl > 10-29 mL/min) *Enoxaparin/Lovenox 30 mg SQ BID (WT < 150 kg, CrCl > 30 mL/min) AND *Sequential Compression Device (SCD) Assessment and Plan Assessment and Plan 1. Spinal Cord Compression discussed by ER physician with Neurosurgery specialist doctor the patient may benefit from Radiation I spoke with Dr. Pieter Woo Neurosurgery specialist and recommended Radiation. consult and discussed by ER physician with financial assistance specialist Doctor Jin Stephenson continue Home Pain medicines. 2. Metastatic Liver/Spine Cancer with unknown primary. financial assistance specialist following. 3. Obesity strongly recommended diet and exercise as outpatient. 4. Hypertension controlled continue home medicines 5. depression continue Home anti depressant. 6. GERD continue home PPIs. The patient is been seen walking in her bedroom, no neurological compromise, DVT prophylaxis with Lovenox. Code Status Full Code. Discussed Condition With Tomasa Alvarez MD Physician Certification 2 Midnight Certification Type: Admission for Inpatient Services Order for Inpatient Services The services are ordered in accordance with Medicare regulations or non- Medicare payer requirements, as applicable. In the case of services not specified as inpatient-only, they are appropriately provided as inpatient services in accordance with the 2-midnight benchmark. Estimated LOS (days): 3 days is the estimated time the patient will need to remain in the hospital, assuming treatment plan goals are met and no additional complications. Post-Hospital Plan: Home Mani Mcelroy MD Sep 05, 2017 12:22
[2017-09-05] MEDS ORDERED: NALOXONE HCL 0.4 MG/ML AMP IV PUSH PRN (12:30)
[2017-09-05] MEDS ORDERED: SENNOSIDES 8.6 MG TAB PO PRN (12:30)
[2017-09-05] MEDS ORDERED: LACTULOSE SYRUP 20 GM/30 ML CUP PO PRN (12:30)
[2017-09-05] MEDS ORDERED: BISACODYL 10 MG SUPP RECTAL PRN (12:30)
[2017-09-05] MEDS ORDERED: SODIUM CHLORIDE 0.9% FLUSH 10 ML FLUSH IV FLUSH PRN (12:30)
[2017-09-05] MEDS ORDERED: NON-FORMULARY DRUG (Oxycodone 30 MG) PO PRN (14:45)
[2017-09-05] MEDS: ENOXAPARIN SODIUM 40 MG/0.4 ML SYRINGE SQ SCH (16:29)
[2017-09-05] MEDS: DEXAMETHASONE SOD PHOS 4 MG/ML VIAL IV PUSH SCH (17:41)
--- NOTE | 2017-09-05 18:17 | MB ---
cc: LORNA SOTOMAYOR DATE OF CONSULTATION: 09/05/2017. REASON FOR CONSULTATION: Patient with a history of cancer of unknown primary with liver metastasis who presents to the emergency room with acute onset abdominal pain. She also has encephalopathy. HISTORY OF PRESENT ILLNESS This is a 57-year-old female who was found to have abnormal liver lesion in 2014. She was undergoing an attempted planned laparoscopic sleeve gastrectomy on 06/14/2015. There was an abnormality in the liver which was thought to be liver cirrhosis initially. She underwent further workup including an ultrasound which revealed heterogeneous hepatic echotexture as well as multiple hypoechoic liver masses. She underwent MRI of her abdomen on 09/07/2015 which revealed multiple solid liver lesions throughout. These were high suspicious for a malignancy. There was mild celiac and elsa hepatis lymphadenopathy as well. She underwent CT-guided biopsy of the right lobe of the liver on 10/03/2015 with pathology revealing poorly differentiated non-small cell cancer with primary site unable to be determined. She saw Dr. De Jesus and began chemotherapy. She received cisplatin and Gemzar. She developed lower back pain and right shoulder pain. She had a PET scan on 11/06/2015 which revealed multiple masses in the liver with the largest in the right hepatic lobe and it was approximately 6.6 cm. There was a 1.7 cm lymph node in the region of gastroesophageal junction without any abnormal uptake. She underwent another liver biopsy which confirmed malignancy. She was at that time found to have sacral and right ilium metastatic lesions. She was seen by radiation oncology, Dr. Sanabria. She was treated to her sacrum and right pelvic area with a dose of 30 cGy in ten fractions. The treatment was completed on 03/26/2016. She had an MRI of the brain on 05/06/2016 which did not show any metastatic disease. She continued to follow with Dr. De Jesus at that time. The patient now presents with confusion and encephalopathy in the emergency room. She underwent imaging including an abdominal CT scan and this revealed bony metastatic disease with a lucent lesion in the posterior aspect of the T10 vertebral body eroding the posterior margin of the vertebral body and resulting in possible central canal narrowing. There was right iliac vein lucent metastatic disease. There was diffuse hepatic metastatic disease and a small amount of ascites was seen. There was increased in size of pericardiophrenic lymph nodes and portacaval lymph nodes. She then had a lumbar spine and thoracic spine MRI. The lumbar spine MRI did not show any metastatic lesions. There was a metastatic bone lesion in the right iliac wing. There is right-sided disk protrusion of L5-S1. The thoracic spine MRI does show a 2.7 cm bone lesion in the posterior aspect of the T10 vertebral body resulting in mild expansion of the vertebral body posteriorly and extending of the mass into the central canal. There is some narrowing of the central canal with effacement of the CSF anteriorly at this level and abutment of the spinal cord posteriorly. The CSF is visible. There is minimal spinal cord signal abnormality. There is mild epidural extension of the enhancement onto the right along the posterior margin of the T9 and T11 vertebral bodies. REVIEW OF SYSTEMS: A comprehensive fourteen-point review of systems was completed, which is negative except as described in the history of present illness. PAST MEDICAL HISTORY: 1. 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 2. Hypertension. 3. Anxiety disorder. PAST SURGICAL HISTORY: Exploratory laparotomy. MEDICATIONS: 1. Protonix 40 milligrams daily. 2. Xanax p.o. twice a day PRN 3. Roxicodone 30 milligrams p.o. q.8 h p.r.n. 4. Lisinopril 20 milligrams p.o. daily. 5. Lexapro 10 milligrams p.o. daily. ALLERGIES: SHE IS ALLERGIC TO : 1. ZOLPIDEM. 2. MORPHINE. 3. DIATRIZOATE. 4. GADOBENIC ACID. 5. IODIXANOL. 6. IOHEXOL. FAMILY HISTORY: Her family history is significant for stomach cancer. SOCIAL HISTORY: She lives with her daughter. She has not had any smoking history. No alcohol abuse. No illicit drug use. PHYSICAL EXAMINATION: VITAL SIGNS: Blood pressure is 140/65, pulse is in the 60s to 70s, temperature is 97.8, O2 sats are 98% on room air. GENERAL: Obese, no apparent distress. HEAD, EYES, EARS, NOSE, THROAT: Pupils are equal, round, reactive to light. Extraocular muscles intact. No thrush. No oral lesions. NECK: Neck is supple. No JVD, no bruits. No lymphadenopathy. CHEST: Chest is clear to auscultation bilaterally. CARDIAC: S1-S2 regular rate and rhythm. ABDOMEN: The abdomen is soft, nontender and nondistended. Bowel sounds are present. EXTREMITIES: Without any petechiae lesion or bruises. NEUROLOGIC: No focal deficits. PSYCHIATRIC: Mood and affect is appropriate. MUSCULOSKELETAL: She has tenderness in the back in the mid thoracic area. LABORATORY DATA: WBCs 16.7, hemoglobin 9.6, platelet count is 132,000. Serum chemistries show a sodium 136, potassium 3.6, chloride 104, BUN is 7, creatinine is 066, carbon dioxide 24.7, glucose 98. IMAGING STUDIES: Imaging was reviewed in the EMR including MRI of the thoracic spine, MRI of lumbar spine and CT of the abdomen and pelvis. 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 She has a history of liver mass and bone mass. She has received chemotherapy consisting of cisplatin and Gemzar. She has also received radiation treatments to the right sacral / ilium. She received a total of 30 cGy in ten fractions. She now presents with confusion, back pain, abdominal pain and imaging reveals cord compression. 1. T10 vertebral body mass resulting in mild expansion of the vertebral body and extension of the mass into the central canal with evidence of cord compression. There is effacement of the CSF. She has a history of poorly differentiated nonsmall cell carcinoma with unknown primary. She was seen by neurosurgery. We will need to have radiation oncology evaluate this patient. We will start her on steroids, Decadron 4 milligrams IV q. 8 hours. We will also need a CT of the chest when feasible to assess for metastatic disease to the chest. I was unable to locate any pathology results in the [facility] system. She might have had biopsy in the past at an outside hospital, likely at [facility]. We will request these records. 2. Pain control. 3. Microcytic anemia. Obtain anemia studies including B12, folate and iron studies. 4. Risk for fall. Initiate fall precautions. 5. Thrombocytopenia with a platelet count of 132,000. Likely chronic due to previous history of malignancy and chemotherapy and radiation. 6. Leukocytosis. Rule out any underlying infection. Could be reactive. Thank you for allowing me to participate in the care of this patient and I will continue to follow this patient along. MD SALOMÓN Gutierrez/SAMMI /5:01 PM /5:34 PM ZULMA
[2017-09-05] MEDS: SODIUM CHLORIDE 0.9% FLUSH 10 ML FLUSH IV FLUSH SCH (21:00)
[2017-09-06] VITALS (7 sets, daily range): BP systolic 117–144; BP diastolic 55–66; PULSE 70–92; RESP 16–18; TEMP 96.2–97.7; O2SAT 97–100
[2017-09-06] MEDS: DEXAMETHASONE SOD PHOS 4 MG/ML VIAL IV PUSH SCH ×4 (00:17→16:19)
[2017-09-06] MEDS: ACETAMINOPHEN 325 MG TAB PO PRN (00:20)
[2017-09-06] MEDS: ESCITALOPRAM OXALATE 10 MG TAB PO SCH (08:51)
[2017-09-06] MEDS: PANTOPRAZOLE SOD 40 MG DELAYED RELEASE TAB PO SCH (08:52)
[2017-09-06] MEDS: SODIUM CHLORIDE 0.9% FLUSH 10 ML FLUSH IV FLUSH SCH ×2 (08:52→21:00)
[2017-09-06] MEDS: LISINOPRIL 20 MG TAB PO SCH (08:52)
[2017-09-06 09:31] LABS: HEMOGLOBIN 9.4 GM/DL (11.6-15.3); LYMPH % 6.8 % (9.0-44.0); MEAN CELL VOLUME 101.5 FL (80.0-100.0); MEAN CORPUSCULAR HEMOGLOBIN 34.3 PG (27.0-34.0); MEAN CORPUSCULAR HGB CONC 33.7 % (32.0-36.0); MEAN PLATELET VOLUME 8.9 FL (7.0-11.0); MONO % 5.4 % (0.0-8.0); MONOCYTE # 0.8 TH/MM3 (0-0.9); NEUT % 87.8 % (16.0-70.0); PLATELET COUNT 111 TH/MM3 (150-450); RED BLOOD COUNT 2.76 MIL/MM3 (4.00-5.30); RED CELL DISTRIBUTION WIDTH 21.5 % (11.6-17.2); WHITE BLOOD COUNT 14.8 TH/MM3 (4.0-11.0)
[2017-09-06 09:52] LABS: BICARBONATE 24.6 MEQ/L (21.0-32.0); CALCIUM 9.2 MG/DL (8.5-10.1); CREATININE 0.59 MG/DL (0.50-1.00)
--- NOTE | 2017-09-06 10:47 | RADRPT ---
EXAM DATE/TIME: 09/06/2017 10:12 [facility] COMPARISON: CT ABDOMEN & PELVIS W/O CONTRAST, September 05, 2017, 7:13. PET/CT [facility]. 05/07/2017 INDICATIONS : non small cell cancer. RADIATION DOSE: 15.60 CTDIvol (mGy) MEDICAL HISTORY : Cardiovascular disease. Hypertension. Gastroesophageal reflux disease. Liver cancer, chemo and rad tx SURGICAL HISTORY : None. ENCOUNTER: Initial ACUITY: 1 day PAIN SCALE: 6/10 LOCATION: chest TECHNIQUE: Volumetric scanning of the chest was performed. Using automated exposure control and adjustment of t he mA and/or kV according to patient size, radiation dose was kept as low as reasonably achievable to obtain optimal diagnostic quality images. DICOM format image data is available electronically for r eview and comparison. Follow-up recommendations for detected pulmonary nodules are based at a minimum on nodule size and pa tient risk factors according to Fleischner Society Guidelines. FINDINGS: LUNGS: 3 mm nodular density in the medial right upper lobe on image #12. This is not seen on prior PET/CT of 05/07/2017. 6 mm nodular density in the medial right lower lobe on image #38. Not seen on prior PET/C T. 7 mm nodular density in the anterior right middle lobe on image #34, not seen on prior PET/CT. 7 m m nodular density in the lateral left lower lobe on image #30. Atelectasis of the posterior lower lob es bilaterally. PLEURAE: There is no pleural thickening or pleural effusion. MEDIASTINUM: Right pericardiophrenic lymph node measures 3.3 cm, unchanged from prior PET/CT. No other enlarged me diastinal lymph nodes. AXILLAE: Within normal limits. No lymphadenopathy. MUSCULOSKELETAL: T10 vertebral body lesion as described on recent studies. Osseous structures otherwise unremarkable. MISCELLANEOUS: Diffuse hepatic metastasis again seen. CONCLUSION: 1. Multiple pulmonary nodular densities indicating metastatic disease bilaterally new when compared t o prior outside PET/CT of 05/07/2017. 2. No change in pericardiophrenic lymph node on the right. 3. Diffuse hepatic metastasis again noted. 4. Metastatic bone lesion of the T10 vertebral body new when compared to prior PET/CT. Fully describe d on recent CT abdomen and MRI thoracic spine studies. Clay Jiang MD on September 06, 2017 at 10:32 Board Certified Radiologist. This report was verified electronically.
--- NOTE | 2017-09-06 12:13 | PD.ONC.PN ---
Subjective Subjective Remarks Pt afebrile Pt asleep on approach. She is easily awakened for exam however quickly drifts back to sleep Pt reports an "upset stomach" Pain is "about the same" Objective Data Date Time Temp Pulse Resp B/P (MAP) Pulse Ox O2 Delivery O2 Flow Rate FiO2 09/06/17 10:12 97 09/06/17 08:00 96.2 92 16 144/62 (89) 97 09/06/17 04:59 96.7 87 18 127/63 (84) 99 09/05/17 23:19 96.5 88 18 117/57 (77) 99 09/05/17 19:16 98.1 104 18 127/58 (81) 97 09/05/17 17:30 18 09/05/17 15:40 98.6 87 18 140/78 (98) 98 09/05/17 15:27 09/05/17 13:48 99 Room Air 09/05/17 13:47 98.4 99 18 123/63 (83) 99 Room Air 09/05/17 12:34 96 21 09/06/17 09/06/17 09/06/17 07:00 15:00 23:00 Intake Total 360 ml Balance 360 ml Result Diagram: 09/06/17 0806 09/06/17 0806 Laboratory Results Laboratory Tests Test 09/06/17 08:06 White Blood Count 14.8 TH/MM3 Red Blood Count 2.76 MIL/MM3 Hemoglobin 9.4 GM/DL Hematocrit 28.0 % Mean Corpuscular Volume 101.5 FL Mean Corpuscular Hemoglobin 34.3 PG Mean Corpuscular Hemoglobin Concent 33.7 % Red Cell Distribution Width 21.5 % Platelet Count 111 TH/MM3 Mean Platelet Volume 8.9 FL Neutrophils (%) (Auto) 87.8 % Lymphocytes (%) (Auto) 6.8 % Monocytes (%) (Auto) 5.4 % Eosinophils (%) (Auto) 0.0 % Basophils (%) (Auto) 0.0 % Neutrophils # (Auto) 13.0 TH/MM3 Lymphocytes # (Auto) 1.0 TH/MM3 Monocytes # (Auto) 0.8 TH/MM3 Eosinophils # (Auto) 0.0 TH/MM3 Basophils # (Auto) 0.0 TH/MM3 CBC Comment DIFF FINAL Differential Comment Blood Urea Nitrogen 8 MG/DL Creatinine 0.59 MG/DL Random Glucose 119 MG/DL Calcium Level 9.2 MG/DL Sodium Level 138 MEQ/L Potassium Level 4.1 MEQ/L Chloride Level 106 MEQ/L Carbon Dioxide Level 24.6 MEQ/L Anion Gap 7 MEQ/L Estimat Glomerular Filtration Rate 126 ML/MIN Lipase 42 U/L Imaging Studies Last [address] 09/06/17 0000 Signed Impressions: Service Date/Time: Wednesday, September 06, 2017 10:12 - CONCLUSION: 1. Multiple pulmonary nodular densities indicating metastatic disease bilaterally new when compared to prior outside PET/CT of 05/07/2017. 2. No change in pericardiophrenic lymph node on the right. 3. Diffuse hepatic metastasis again noted. 4. Metastatic bone lesion of the T10 vertebral body new when compared to prior PET/CT. Fully described on recent CT abdomen and MRI thoracic spine studies. Clay Jiang MD Administered Medications Medications (Trade) Dose Ordered Sig/Ambrosio Route PRN Reason Start Time Stop Time Status Last Admin Dose Admin Sodium Chloride 1,000 ml @ 42 mls/hr [id number] IV 09/05/17 12:00 09/05/17 17:42 Acetaminophen (Tylenol) 650 mg Q4H PRN PO TEMP > 100.4 09/05/17 12:30 09/06/17 00:20 Sennosides (Senokot) 17.2 mg Q12H PRN PO Moderate constipation 09/05/17 12:30 09/06/17 09:26 Pantoprazole Sodium (Protonix) 40 mg DAILY PO 09/06/17 09:00 09/06/17 08:52 Oxycodone HCl (Roxicodone) 30 mg Q8H PRN PO PAIN SCALE 1 TO 10 09/05/17 15:15 09/05/17 16:30 Enoxaparin Sodium (Lovenox Inj) 40 mg Q24H SQ 09/05/17 16:00 09/05/17 16:29 Dexamethasone Sodium Phosphate (Decadron Inj) 4 mg Q6HR IV PUSH 09/05/17 18:00 09/06/17 06:16 Objective Remarks GENERAL: Pt resting on L side asleep in no acute distress. SKIN: Warm and dry. HEAD: Normocephalic. EYES: No injection or drainage. NECK: Supple, trachea midline. CARDIOVASCULAR: Regular rate and rhythm without murmurs. RESPIRATORY: Clear posteriorly. Breathing unlabored at rest. GASTROINTESTINAL: Abdomen soft, tender to palpation EXTREMITIES: No cyanosis, or edema. MUSCULOSKELETAL: Adequate muscle tone. NEUROLOGICAL: Lethargic. Normal speech. Moving all extremities Assessment/Plan Problem List: (1) Cancer with unknown primary site ICD Codes: C80.1 - Malignant (primary) neoplasm, unspecified Plan: -- Radiation oncology consulted for canal narrowing noted to T10 -- We'll get MRI of the brain for lethargy and reported confusion -- CT chest noted to have new metastatic lesions in the lung -- Patient has refused additional chemotherapy since the initial cisplatin and Gemzar at the time of diagnosis Hx/Workup: 57-year-old female who was found to have an abnormal liver lesion and 2014 she was undergoing an attempted sleeve gastrectomy. Further workup included heterogenous hepatic echotexture as well as multiple hypoechoic liver masses. Biopsy of one of these masses in September 2015 showed poorly differentiated non-small cell cancer with unknown primary. At that time she did receive cisplatin and Gemzar. She had a PET scan done in October 2015 showed multiple masses in the liver with the largest being 6.6 cm a second liver biopsy confirmed malignancy. She had radiation in March 2016 after being found to have sacral and right ilium metastatic lesions. She presented with encephalopathy and confusion in the emergency room. Abdominal CT scan showed bony metastatic disease with possible central canal narrowing at the area of T10. A lumbar MRI showed no metastatic disease. Assessment 57 y/o female with poorly differentiated non-small cell cancer with unknown primary admitted with confusion Plan 1. Obtain MRI of the brain with contrast to evaluate for metastatic disease 2. Await radiation oncology consult 3. Continue Oramorph for pain control 4. Supportive care Attending Statement The exam, history, and the medical decision-making described in the above note were completed with the assistance of the mid-level provider. I reviewed and agree with the findings presented. I attest that I had a [id number] encounter with the patient on the same day, and personally performed and documented my assessment and findings in the medical record Keyanna Urbina Sep 06, 2017 12:13 Jin Stephenson MD Sep 06, 2017 19:35
--- NOTE | 2017-09-06 12:42 | HHI.PR ---
Subjective Remarks feeling better- abdominal pain improved taking po well, no nausea or vomiting no back pain no urinary or fecal incontinence Objective Vitals Vital Signs Date Time Temp Pulse Resp B/P (MAP) Pulse Ox O2 Delivery O2 Flow Rate FiO2 09/06/17 10:12 97 09/06/17 08:00 96.2 92 16 144/62 (89) 97 09/06/17 04:59 96.7 87 18 127/63 (84) 99 09/05/17 23:19 96.5 88 18 117/57 (77) 99 09/05/17 19:16 98.1 104 18 127/58 (81) 97 09/05/17 17:30 18 09/05/17 15:40 98.6 87 18 140/78 (98) 98 09/05/17 15:27 09/05/17 13:48 99 Room Air 09/05/17 13:47 98.4 99 18 123/63 (83) 99 Room Air I/O 09/05/17 09/05/17 09/05/17 09/06/17 09/06/17 09/06/17 07:00 15:00 23:00 07:00 15:00 23:00 Intake Total 360 ml 360 ml Balance 360 ml 360 ml Intake Oral 360 ml 360 ml # Voids 1 4 # Bowel Movements 0 0 Result Diagram: 09/06/17 0806 09/06/17 0806 Imaging Last Impressions Chest CT 09/06/17 0000 Signed Impressions: Service Date/Time: Wednesday, September 06, 2017 10:12 - CONCLUSION: 1. Multiple pulmonary nodular densities indicating metastatic disease bilaterally new when compared to prior outside PET/CT of 05/07/2017. 2. No change in pericardiophrenic lymph node on the right. 3. Diffuse hepatic metastasis again noted. 4. Metastatic bone lesion of the T10 vertebral body new when compared to prior PET/CT. Fully described on recent CT abdomen and MRI thoracic spine studies. Clay Jiang MD Thoracic Spine MRI 09/05/17 0000 Signed Impressions: Service Date/Time: Tuesday, September 05, 2017 09:33 - CONCLUSION: 1. 2.7 cm bone lesion in the posterior aspect of the T10 vertebral body resulting in mild expansion of the vertebral body posteriorly and extension of the mass into the central canal. There is some narrowing of the central canal with effacement of the CSF anteriorly at this level and abutment of the spinal cord. Posteriorly CSF remains visible. Minimal spinal cord signal abnormality at this level. There is also mild epidural extension of the enhancement anteriorly on the right along the posterior margins of the T9 and T11 vertebral bodies. 2. Syrinx is identified at the T5 level. Clay Jiang MD Lumbar Spine MRI 09/05/17 0000 Signed Impressions: Service Date/Time: Tuesday, September 05, 2017 09:33 - CONCLUSION: 1. No metastatic lesions identified in the lumbar spine region. There is a metastatic bone lesion in the right iliac wing. This is partially visualized. 2. Right-sided disc protrusion at L5-S1 resulting in right lateral recess narrowing and mild bilateral neural foraminal narrowing. Clay Jiang MD Abdomen/Pelvis CT 09/05/17 0000 Signed Impressions: Service Date/Time: Tuesday, September 05, 2017 07:13 - CONCLUSION: 1. Bony metastatic disease is now seen with a lucent lesion in the posterior aspect of the T10 vertebral body eroding the posterior margin of the vertebral body and resulting in possible central canal narrowing. This finding could be further evaluated with thoracic spine MRI with contrast. Right iliac wing lucent metastatic bone lesion also seen. These findings are a change from the prior study. 2. Diffuse hepatic metastatic disease again seen with no significant interval change. 3. Small amount of ascites now seen in the upper abdomen. 4. Increase in size of pericardiophrenic lymph node and portacaval lymph node. 5. Nonspecific distended gallbladder filled with contrast. Clay Jiang MD Objective Remarks awake and alert, no acute distress anicteric lungs- no rales regular rhythm abdomen soft, nontender extremities no edema motor equal all extrmeities, no calf swelling grossly no sensory deficits gait slow but steady A/P Assessment and Plan 57 years old Abdominal pain- improved- taking po well- continue to monitor Stage IV - Metastatic non small cell cancer with liver , lungs and bone mets and mets to T 10 vertebral body- unknown primary - up and ambulating well- no neuro deficits - on Dexamethasone - prn pain meds - Oncology ff- - Radiation Oncology consulted Leukocytosis- maybe reactive from malignancy. No fever. Monitor Obesity strongly recommended diet and exercise as outpatient. Hypertension controlled continue home medicines depression continue Home anti depressant. GERD continue PPI DVT prophylaxis with Lovenox. LacierdaAlfea M. MD Sep 06, 2017 12:42
[2017-09-06] MEDS ORDERED: LORazepam 2 MG/ML VIAL IV PUSH ONE (14:45)
[2017-09-06] MEDS ORDERED: GADODIAMIDE PF 287 MG/ML 20 ML VIAL (for RAD MRI) IVCONTRAST ONE (15:45)
--- NOTE | 2017-09-06 16:14 | RADRPT ---
EXAM DATE/TIME: 09/06/2017 15:36 [facility] COMPARISON: No previous studies available for comparison. INDICATIONS : Metastasis disease. Patient with metastatic non-small cell carcinoma. Patient has known osseous metas tasis and pulmonary metastasis. CONTRAST: 20 cc Omniscan (gadodiamide) IV MEDICAL HISTORY : Metastatic, liver. SURGICAL HISTORY : Spinal surgery x2 ENCOUNTER: Initial ACUITY: 2 day PAIN SCORE: 0/10 LOCATION: cranial TECHNIQUE: Multiplanar, multisequence MRI of the brain was performed both prior to and following the administrat ion of paramagnetic contrast. FINDINGS: CEREBRUM: The ventricles are normal for age. No evidence of midline shift, mass lesion, hemorrhage or acute in farction. No extraaxial fluid collections are seen. The pituitary gland and suprasellar cistern are normal in configuration. WHITE MATTER: No significant signal abnormalities are seen in the white matter. POSTERIOR FOSSA: The cerebellum and brainstem are intact. The 4th ventricle is midline. The cerebellopontine angle is unremarkable. The cerebellar tonsils are normal in position. DIFFUSION IMAGING: No focal areas of restricted diffusion are seen. No evidence of acute infarction. EXTRACRANIAL: The visualized portions of the orbits bar unremarkable. There is a retention cyst in inferior left ma xillary sinus. POST-CONTRAST: No abnormal areas of parenchymal or dural enhancement. No evidence of blood-brain barrier breakdown. CONCLUSION: Negative exam with no evidence of brain metastasis. Vaughn Moore MD on September 06, 2017 at 16:09 Board Certified Radiologist. This report was verified electronically.
[2017-09-06] MEDS: ENOXAPARIN SODIUM 40 MG/0.4 ML SYRINGE SQ SCH (16:19)
--- NOTE | 2017-09-06 18:57 | MB ---
cc: LORNA STEPHENSON ALVARO DATE OF CONSULTATION: 09/06/2017. REASON FOR CONSULTATION: Inpatient radiation oncology consultation. DATE OF : 1960. REQUESTING PHYSICIAN: Dr. Lorna Stephenson. DIAGNOSIS: Metastatic carcinoma from unknown primary. STAGE: Stage IV. CHIEF COMPLAINT: Confusion, back pain, mass on MRI at T10. REASON FOR VISIT: The patient being evaluated for palliative radiotherapeutic treatment options. 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 This is per biopsy performed on 10/03/2015. The patient was seen by Dr. Stephenson yesterday. The patient has been admitted through the emergency room for confusion and encephalopathy. She underwent imaging studies, which detected a lesion at T10 with central canal narrowing. As a result of this, a consultation has been placed for me to evaluate the patient for palliative radiotherapy to the thoracic spine. Of note, the patient appears to have received some chemotherapy in the past but has not received anything recently. She also has a previous history of radiation therapy to the sacral area some time in March of 2016, and the records will have to be obtained from [facility]. I have discussed this case today with her daughter, Oriana, who I reached at [phone]. I discussed this case personally with Dr. Stephenson. PAST MEDICAL HISTORY: As above. 1. History of hypertension. 2. Anxiety disorder. 3. History of exploratory laparotomy. MEDICATIONS: 1. Lexapro. 2. Lisinopril. 3. Protonix. 4. Decadron. 5. Lovenox. 6. Oxycodone. 7. Tylenol. 8. Zofran. 9. Narcan. 10. Senokot-S. 11. Lactulose. ALLERGIES: 1. MORPHINE. 2. DIATRIZOATE. 3. ZOLPIDEM. 4. GADOBENIC ACID. 5. IODIXANOL. 6. IOHEXOL. FAMILY HISTORY: A history of some adenocarcinoma in the family. SOCIAL HISTORY: The patient denies any tobacco use or alcohol use. REVIEW OF SYSTEMS: CONSTITUTIONAL: The patient states that she is feeling better since being admitted into the hospital. She denies any major decrease in weight recently. ALLERGIES: She has not had an allergic reaction recently. EYES: Unremarkable. ENT: Unremarkable. NECK: Unremarkable. INTEGUMENTARY: Unremarkable. CARDIOVASCULAR: Denies any chest pain. RESPIRATORY: Unremarkable. The patient denies any cough, shortness of breath, no hemoptysis. GASTROINTESTINAL: She admits to slight abdominal discomfort. No rectal bleeding. GENITOURINARY: Unremarkable. MUSCULOSKELETAL: Unremarkable. NEUROLOGICAL: Denies any motor function deficits. No clinical signs or symptoms of stroke. No decrease in sensory functions. No loss of bowel or bladder control. PSYCHIATRIC Anxiety. ENDOCRINE: Unremarkable. HEMATOLOGIC: Unremarkable. DERMATOLOGIC: Unremarkable. PHYSICAL EXAMINATION: GENERAL: The patient appears to be oriented in place. She has some difficulty naming today's date. She is able to carry on a normal conversation. VITAL SIGNS: Temperature 96.2, pulse 92, respiratory 16, blood pressure 144/62, pulse ox 97% on room air. BACK: To palpation and percussion of the posterior back there is pain elicited around the T10 to T12 vertebral bodies area and the joints. No muscle pain is detected. LUNGS: Lungs were clear to auscultation with decreased ventilatory respiratory effort which is equal and bilateral. HEART: Heart appeared to be regular in rate and rhythm with no murmurs. NECK: Palpation of neck and bilateral supraclavicular areas are without lymph nodes. ABDOMEN: Palpation of the abdominal cavity reveals pain, which is diffuse. The patient does not let me put enough pressure to determine if there is any hepatosplenomegaly. No periumbilical masses were detected. EXTREMITIES: No lower extremity edema detected. NEUROLOGIC: When I spoke to the patient today, she does not appear to have confusion and she is able to answer most of the questions and carry on a normal conversation. Motor functions are preserved. Sensory functions are preserved. SKIN: Without rash. SURGICAL PATHOLOGY: Surgical pathology as previously recorded on the medical records with metastatic [id number] carcinoma poorly-differentiated per biopsy done September of 2015. RADIOLOGY: Thoracic spine MRI on 09/05/2017, IMPRESSION: A 2.7 cm bone lesion at the posterior aspect of the T10 vertebral body resulting in mild expansion of the vertebral body posteriorly and extension of the mass into the central canal. There is some narrowing at the central canal with effacement of the anteriorly at this level and abutment of the spinal cord. Posteriorly the remains visible. Minimal spinal cord signal abnormality at this level. There is also mild extension of the enhancement on the right and along the posterior margins of T9 and T11 vertebral bodies. This imaging study has been independently reviewed by me. MRI of the lumbar spine on 09/05/2017, CONCLUSION: No metastatic lesions identified in the lumbar spine region. There is a metastatic bony lesion in the right iliac wing that is partially visualized. Right-sided disc protrusion at L5-S1 and some lateral aspect narrowing and mild bilateral neural foraminal narrowing. This imaging study has been independently reviewed by me. Abdomen and pelvis CT, 09/05/2017, reviewed. Chest x-ray 09/06/2017, reviewed. ASSESSMENT: This is a 57-year-old -[place] female with a diagnosis of metastatic [id number] carcinoma to the thoracic spine. The patient is being evaluated for palliative radiotherapeutic treatment options. PLAN: I had an extensive discussion with the patient in regards to the present condition. I have discussed this case with Dr. Stephenson as well as with her daughter today. The patient will benefit definitely from radiation therapy. I would like to start radiation therapy by tomorrow or thursday to prevent any neurological changes. Should any neurological changes arise today, the patient will be treated today. I advised the patient of the treatment modalities, the expected results, side effects and complications as well as the purpose of the radiation therapy, which will be for pain control, prevent any neurological damage and to prevent a pathological fracture. The side effects and complications include but are not limited to weakness and fatigue, decreased blood counts, necrosis of the skin, nausea and vomiting, diarrhea, kidney damage, bowel damage, bone damage and spinal cord damage. After a thorough discussion, the patient says that things are moving too fast and she does not if she wants to get treated. I explained to her the importance of doing radiation therapy since she is not a surgical candidate per discussion of Dr. Stephenson with neurosurgery. I explained the merits of the radiation therapy to the daughter. The daughter is in agreement to have the patient move forward with radiation therapy. She is coming in later today to discuss this with her mother but the daughter is in agreement to move forward radiation therapy. The patient will be given a time for tomorrow for simulation and treatment planning. The patient was advised that if I can be of any further assistance to please let me know, otherwise we will proceed as above. I also gave her my office phone number to the patient's daughter to call me should she have any questions. Dr. Stephenson, thank you very much for placing this consult and for allowing me to participate in the care of your patient. Should you have any further questions or concerns, please do not hesitate to contact me. MD PHILIPPE Welch/SAMMI /1:19 PM /6:20 PM ZULMA
[2017-09-06] MEDS: ONDANSETRON HCL 4 MG/2 ML VIAL IVP PRN (22:06)
[2017-09-07] VITALS (9 sets, daily range): BP systolic 138–156; BP diastolic 69–81; PULSE 70–101; RESP 16–20; TEMP 97.3–98.7; O2SAT 96–100
[2017-09-07] MEDS: DEXAMETHASONE SOD PHOS 4 MG/ML VIAL IV PUSH SCH ×4 (00:26→18:28)
[2017-09-07] MEDS ORDERED: HYDROmorphone HCL PF 2 MG/ML VIAL IV ONE (02:00)
[2017-09-07] MEDS ORDERED: HYDROmorphone HCL PF 1 MG/ML VIAL IV PUSH ONE ×2 (02:00→05:30)
[2017-09-07] MEDS: ONDANSETRON HCL 4 MG/2 ML VIAL IVP PRN (03:37)
[2017-09-07] MEDS: PANTOPRAZOLE SOD 40 MG DELAYED RELEASE TAB PO SCH (04:35)
[2017-09-07] MEDS ORDERED: PROMETHAZINE HCL 25 MG TAB PO ONE (05:30)
[2017-09-07] MEDS ORDERED: HYDROmorphone HCL PF 2 MG/ML VIAL IV PUSH ONE (05:34)
[2017-09-07 07:34] LABS: AUTOMATED NEUTROPHIL # 19.3 TH/MM3 (1.8-7.7); HEMATOCRIT 28.6 % (35.0-46.0); HEMOGLOBIN 9.5 GM/DL (11.6-15.3); LYMPH % 5.9 % (9.0-44.0); LYMPHOCYTE # 1.3 TH/MM3 (1.0-4.8); MEAN CELL VOLUME 102.5 FL (80.0-100.0); MEAN CORPUSCULAR HEMOGLOBIN 34.1 PG (27.0-34.0); MEAN CORPUSCULAR HGB CONC 33.3 % (32.0-36.0); MEAN PLATELET VOLUME 10.1 FL (7.0-11.0); MONO % 6.4 % (0.0-8.0); MONOCYTE # 1.4 TH/MM3 (0-0.9); NEUT % 87.7 % (16.0-70.0); PLATELET COUNT 174 TH/MM3 (150-450); RED BLOOD COUNT 2.79 MIL/MM3 (4.00-5.30); RED CELL DISTRIBUTION WIDTH 22.1 % (11.6-17.2)
--- NOTE | 2017-09-07 08:04 | HHI.PR ---
Subjective Remarks looking forward to getting radiation therapy started no reported nausea or vomiting Objective Vitals Vital Signs Date Time Temp Pulse Resp B/P (MAP) Pulse Ox O2 Delivery O2 Flow Rate FiO2 09/07/17 06:36 79 09/07/17 04:38 97.8 70 18 140/71 (94) 100 09/07/17 03:29 21 09/07/17 00:30 98.0 82 16 138/69 (92) 98 09/06/17 21:35 97.7 77 16 134/66 (88) 98 09/06/17 20:57 21 09/06/17 20:09 96.7 83 18 129/59 (82) 98 09/06/17 16:00 97.0 70 18 117/55 (75) 99 09/06/17 12:00 97.7 76 18 119/59 (79) 100 09/06/17 10:12 97 I/O 09/06/17 09/06/17 09/06/17 09/07/17 09/07/17 09/07/17 07:00 15:00 23:00 07:00 15:00 23:00 Intake Total 360 ml 600 ml 780 ml 480 ml Balance 360 ml 600 ml 780 ml 480 ml Intake Oral 360 ml 600 ml 360 ml 480 ml IV Total 420 ml # Voids 4 4 5 2 # Bowel Movements 0 1 1 Result Diagram: 09/07/17 0610 09/06/17 0806 Imaging Last Impressions Chest CT 09/06/17 0000 Signed Impressions: Service Date/Time: Wednesday, September 06, 2017 10:12 - CONCLUSION: 1. Multiple pulmonary nodular densities indicating metastatic disease bilaterally new when compared to prior outside PET/CT of 05/07/2017. 2. No change in pericardiophrenic lymph node on the right. 3. Diffuse hepatic metastasis again noted. 4. Metastatic bone lesion of the T10 vertebral body new when compared to prior PET/CT. Fully described on recent CT abdomen and MRI thoracic spine studies. Clay Jiang MD Brain MRI 09/06/17 0000 Signed Impressions: Service Date/Time: Wednesday, September 06, 2017 15:36 - CONCLUSION: Negative exam with no evidence of brain metastasis. Vaughn Moore MD Thoracic Spine MRI 09/05/17 0000 Signed Impressions: Service Date/Time: Tuesday, September 05, 2017 09:33 - CONCLUSION: 1. 2.7 cm bone lesion in the posterior aspect of the T10 vertebral body resulting in mild expansion of the vertebral body posteriorly and extension of the mass into the central canal. There is some narrowing of the central canal with effacement of the CSF anteriorly at this level and abutment of the spinal cord. Posteriorly CSF remains visible. Minimal spinal cord signal abnormality at this level. There is also mild epidural extension of the enhancement anteriorly on the right along the posterior margins of the T9 and T11 vertebral bodies. 2. Syrinx is identified at the T5 level. Clay Jiang MD Lumbar Spine MRI 09/05/17 0000 Signed Impressions: Service Date/Time: Tuesday, September 05, 2017 09:33 - CONCLUSION: 1. No metastatic lesions identified in the lumbar spine region. There is a metastatic bone lesion in the right iliac wing. This is partially visualized. 2. Right-sided disc protrusion at L5-S1 resulting in right lateral recess narrowing and mild bilateral neural foraminal narrowing. Clay Jiang MD Abdomen/Pelvis CT 09/05/17 0000 Signed Impressions: Service Date/Time: Tuesday, September 05, 2017 07:13 - CONCLUSION: 1. Bony metastatic disease is now seen with a lucent lesion in the posterior aspect of the T10 vertebral body eroding the posterior margin of the vertebral body and resulting in possible central canal narrowing. This finding could be further evaluated with thoracic spine MRI with contrast. Right iliac wing lucent metastatic bone lesion also seen. These findings are a change from the prior study. 2. Diffuse hepatic metastatic disease again seen with no significant interval change. 3. Small amount of ascites now seen in the upper abdomen. 4. Increase in size of pericardiophrenic lymph node and portacaval lymph node. 5. Nonspecific distended gallbladder filled with contrast. 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 Monitor for fever and signs of infection Obesity strongly recommended diet and exercise as outpatient. Hypertension controlled continue home medicines depression continue Home anti depressant. GERD continue home PPIs. DVT prophylaxis with Lovenox. Oj Mendez MD Sep 07, 2017 08:04
[2017-09-07] MEDS: ESCITALOPRAM OXALATE 10 MG TAB PO SCH (08:33)
[2017-09-07] MEDS: LISINOPRIL 20 MG TAB PO SCH (08:34)
[2017-09-07] MEDS: SODIUM CHLORIDE 0.9% FLUSH 10 ML FLUSH IV FLUSH SCH ×2 (08:34→22:30)
--- NOTE | 2017-09-07 09:56 | PD.ONC.PN ---
Subjective Subjective Remarks Afebrile overnight. Patient resting in bed with daughter and sister at bedside. Denies pain. Wanting to know what time she will go for radiation today. Objective Data Date Time Temp Pulse Resp B/P (MAP) Pulse Ox O2 Delivery O2 Flow Rate FiO2 09/07/17 08:24 98.5 101 20 148/72 (97) 98 09/07/17 06:36 79 09/07/17 04:38 97.8 70 18 140/71 (94) 100 09/07/17 03:29 21 09/07/17 00:30 98.0 82 16 138/69 (92) 98 09/06/17 21:35 97.7 77 16 134/66 (88) 98 09/06/17 20:57 21 09/06/17 20:09 96.7 83 18 129/59 (82) 98 09/06/17 16:00 97.0 70 18 117/55 (75) 99 09/06/17 12:00 97.7 76 18 119/59 (79) 100 09/06/17 10:12 97 09/07/17 09/07/17 09/07/17 07:00 15:00 23:00 Intake Total 480 ml Balance 480 ml Result Diagram: 09/07/17 0610 09/06/17 0806 Laboratory Results Laboratory Tests Test 09/07/17 06:10 White Blood Count 22.0 TH/MM3 Red Blood Count 2.79 MIL/MM3 Hemoglobin 9.5 GM/DL Hematocrit 28.6 % Mean Corpuscular Volume 102.5 FL Mean Corpuscular Hemoglobin 34.1 PG Mean Corpuscular Hemoglobin Concent 33.3 % Red Cell Distribution Width 22.1 % Platelet Count 174 TH/MM3 Mean Platelet Volume 10.1 FL Neutrophils (%) (Auto) 87.7 % Lymphocytes (%) (Auto) 5.9 % Monocytes (%) (Auto) 6.4 % Eosinophils (%) (Auto) 0.0 % Basophils (%) (Auto) 0.0 % Neutrophils # (Auto) 19.3 TH/MM3 Lymphocytes # (Auto) 1.3 TH/MM3 Monocytes # (Auto) 1.4 TH/MM3 Eosinophils # (Auto) 0.0 TH/MM3 Basophils # (Auto) 0.0 TH/MM3 CBC Comment DIFF FINAL Differential Comment Administered Medications Medications (Trade) Dose Ordered Sig/Ambrosio Route PRN Reason Start Time Stop Time Status Last Admin Dose Admin Sodium Chloride 1,000 ml @ 42 mls/hr [id number] IV 09/05/17 12:00 09/05/17 17:42 Sodium Chloride (NS Flush) 2 ml BID IV FLUSH 09/05/17 21:00 09/07/17 08:34 Acetaminophen (Tylenol) 650 mg Q4H PRN PO TEMP > 100.4 09/05/17 12:30 09/06/17 00:20 Ondansetron HCl (Zofran Inj) 4 mg Q6H PRN IVP NAUSEA OR VOMITING 09/05/17 12:30 09/07/17 03:37 Sennosides (Senokot) 17.2 mg Q12H PRN PO Moderate constipation 09/05/17 12:30 09/06/17 09:26 Escitalopram Oxalate (Lexapro) 10 mg DAILY PO 09/06/17 09:00 09/07/17 08:33 Lisinopril (Prinivil) 20 mg DAILY PO 09/06/17 09:00 09/07/17 08:34 Pantoprazole Sodium (Protonix) 40 mg DAILY PO 09/06/17 09:00 09/07/17 04:35 Oxycodone HCl (Roxicodone) 30 mg Q8H PRN PO PAIN SCALE 1 TO 10 09/05/17 15:15 09/06/17 22:53 Enoxaparin Sodium (Lovenox Inj) 40 mg Q24H SQ 09/05/17 16:00 09/06/17 16:19 Dexamethasone Sodium Phosphate (Decadron Inj) 4 mg Q6HR IV PUSH 09/05/17 18:00 09/07/17 05:40 Objective Remarks GENERAL: Middle aged female, sitting up in bed in [facility]. SKIN: Warm and dry. HEAD: Normocephalic. EYES: No injection or drainage. NECK: Supple, trachea midline. CARDIOVASCULAR: Regular rate and rhythm RESPIRATORY: Breath sounds equal bilaterally. No accessory muscle use. GASTROINTESTINAL: Abdomen soft, non-tender, nondistended. EXTREMITIES: No cyanosis, or edema. MUSCULOSKELETAL: Adequate muscle tone. NEUROLOGICAL: awake and alert, normal speech. oriented to time place and self. facial movements symmetric. moving all extremities. Assessment/Plan Problem List: (1) Cancer with unknown primary site ICD Codes: C80.1 - Malignant (primary) neoplasm, unspecified Plan: --MRI brain: no mets. --XRT to start today Hx/Workup (from initial consult, brought forward for continuity of care) 57-year -old female who was found to have an abnormal liver lesion and 2014 she was undergoing an attempted sleeve gastrectomy. Further workup included heterogenous hepatic echotexture as well as multiple hypoechoic liver masses. 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 At that time she did receive cisplatin and Gemzar. She had a PET scan done in October 2015 showed multiple masses in the liver with the largest being 6.6 cm a second liver biopsy confirmed malignancy. She had radiation in March 2016 after being found to have sacral and right ilium metastatic lesions. She presented with encephalopathy and confusion in the emergency room. Abdominal CT scan showed bony metastatic disease with possible central canal narrowing at the area of T10. A lumbar MRI showed no metastatic disease. 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 XRT to start today 2. continue oxycodone for pain management. 3. monitor CBC Attending Statement The exam, history, and the medical decision-making described in the above note were completed with the assistance of the mid-level provider. I reviewed and agree with the findings presented. I attest that I had a [id number] encounter with the patient on the same day, and personally performed and documented my assessment and findings in the medical record Ghada Wing Sep 07, 2017 09:55 Jin Stephenson MD Sep 07, 2017 20:45
[2017-09-07] MEDS: ENOXAPARIN SODIUM 40 MG/0.4 ML SYRINGE SQ SCH (16:20)
[2017-09-07] MEDS: ACETAMINOPHEN 325 MG TAB PO PRN (18:29)
[2017-09-07] MEDS: SODIUM CHLOR 0.9% 1000 ML INJ 1,000 ML IV SCH (19:58)
[2017-09-07] MEDS: DOCUSATE SODIUM 50 MG/SENNA 8.6 MG TAB PO SCH (22:30)
[2017-09-08] VITALS (7 sets, daily range): BP systolic 117–149; BP diastolic 64–79; PULSE 57–112; RESP 16–18; TEMP 97.3–98.8; O2SAT 93–100
[2017-09-08] MEDS: DEXAMETHASONE SOD PHOS 4 MG/ML VIAL IV PUSH SCH ×5 (00:46→23:50)
[2017-09-08] MEDS: LISINOPRIL 20 MG TAB PO SCH (08:14)
[2017-09-08] MEDS: PANTOPRAZOLE SOD 40 MG DELAYED RELEASE TAB PO SCH (08:14)
[2017-09-08] MEDS: ESCITALOPRAM OXALATE 10 MG TAB PO SCH (08:14)
[2017-09-08] MEDS: SODIUM CHLORIDE 0.9% FLUSH 10 ML FLUSH IV FLUSH SCH ×2 (08:15→19:28)
[2017-09-08] MEDS: DOCUSATE SODIUM 50 MG/SENNA 8.6 MG TAB PO SCH ×2 (08:15→19:28)
--- NOTE | 2017-09-08 08:25 | HHI.PR ---
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 Unknown Primary, for Radiation therapy. to continue Dexamethasone every 8 hours, bioinformatics support specialist and Radiation Oncology following. discussed with patient and bioinformatics support specialist COLLEGE ARCHIVIST, had radiation simulation yesterday and for today will have Radiation therapy not yet cleared for discharge. discussed with nurse Miss Yung, No nausea, vomit or diarrhea. Objective Vital Signs Date Time Temp Pulse Resp B/P (MAP) Pulse Ox O2 Delivery O2 Flow Rate FiO2 09/08/17 05:05 97.3 74 18 129/72 (91) 97 09/08/17 00:42 98.3 92 16 117/64 (81) 100 09/07/17 22:25 97.3 80 16 139/75 (96) 100 09/07/17 19:54 21 09/07/17 16:17 98.3 79 16 150/81 (104) 96 09/07/17 14:24 99 09/07/17 13:49 98.7 70 16 156/81 (106) 99 09/07/17 08:24 98.5 98 20 148/72 (97) 98 I/O 09/07/17 09/07/17 09/07/17 09/08/17 09/08/17 09/08/17 07:00 15:00 23:00 07:00 15:00 23:00 Intake Total 480 ml 600 ml 600 ml Balance 480 ml 600 ml 600 ml Intake Oral 480 ml 600 ml 600 ml # Voids 2 2 3 Result Diagram: 09/07/17 0610 09/06/17 0806 Imaging Last Impressions Chest CT 09/06/17 0000 Signed Impressions: Service Date/Time: Wednesday, September 06, 2017 10:12 - CONCLUSION: 1. Multiple pulmonary nodular densities indicating metastatic disease bilaterally new when compared to prior outside PET/CT of 05/07/2017. 2. No change in pericardiophrenic lymph node on the right. 3. Diffuse hepatic metastasis again noted. 4. Metastatic bone lesion of the T10 vertebral body new when compared to prior PET/CT. Fully described on recent CT abdomen and MRI thoracic spine studies. Clay Jiang MD Brain MRI 09/06/17 0000 Signed Impressions: Service Date/Time: Wednesday, September 06, 2017 15:36 - CONCLUSION: Negative exam with no evidence of brain metastasis. Vaughn Moore MD Thoracic Spine MRI 09/05/17 0000 Signed Impressions: Service Date/Time: Tuesday, September 05, 2017 09:33 - CONCLUSION: 1. 2.7 cm bone lesion in the posterior aspect of the T10 vertebral body resulting in mild expansion of the vertebral body posteriorly and extension of the mass into the central canal. There is some narrowing of the central canal with effacement of the CSF anteriorly at this level and abutment of the spinal cord. Posteriorly CSF remains visible. Minimal spinal cord signal abnormality at this level. There is also mild epidural extension of the enhancement anteriorly on the right along the posterior margins of the T9 and T11 vertebral bodies. 2. Syrinx is identified at the T5 level. Clay Jiang MD Lumbar Spine MRI 09/05/17 0000 Signed Impressions: Service Date/Time: Tuesday, September 05, 2017 09:33 - CONCLUSION: 1. No metastatic lesions identified in the lumbar spine region. There is a metastatic bone lesion in the right iliac wing. This is partially visualized. 2. Right-sided disc protrusion at L5-S1 resulting in right lateral recess narrowing and mild bilateral neural foraminal narrowing. Clay Jiang MD Abdomen/Pelvis CT 09/05/17 0000 Signed Impressions: Service Date/Time: Tuesday, September 05, 2017 07:13 - CONCLUSION: 1. Bony metastatic disease is now seen with a lucent lesion in the posterior aspect of the T10 vertebral body eroding the posterior margin of the vertebral body and resulting in possible central canal narrowing. This finding could be further evaluated with thoracic spine MRI with contrast. Right iliac wing lucent metastatic bone lesion also seen. These findings are a change from the prior study. 2. Diffuse hepatic metastatic disease again seen with no significant interval change. 3. Small amount of ascites now seen in the upper abdomen. 4. Increase in size of pericardiophrenic lymph node and portacaval lymph node. 5. Nonspecific distended gallbladder filled with contrast. Clay Jiang MD Procedures None Other Results Laboratory Tests Test 09/05/17 05:15 09/05/17 05:20 09/06/17 08:06 09/07/17 06:10 Blood Urea Nitrogen 7 MG/DL 8 MG/DL Creatinine 0.66 MG/DL 0.59 MG/DL Random Glucose 98 MG/DL 119 MG/DL Total Protein 9.3 GM/DL Albumin 2.4 GM/DL Calcium Level 8.9 MG/DL 9.2 MG/DL Alkaline Phosphatase 296 U/L Aspartate Amino Transf (AST/SGOT) 57 U/L Alanine Aminotransferase (ALT/SGPT) 11 U/L Total Bilirubin 0.9 MG/DL Sodium Level 136 MEQ/L 138 MEQ/L Potassium Level 3.6 MEQ/L 4.1 MEQ/L Chloride Level 104 MEQ/L 106 MEQ/L Carbon Dioxide Level 24.7 MEQ/L 24.6 MEQ/L Ammonia 32 MCMOL/L Urine Color YELLOW Urine Turbidity CLEAR Urine pH 6.0 Urine Specific [place] 1.033 Urine Protein 30 mg/dL Urine Glucose (UA) NEG mg/dL Urine Ketones NEG mg/dL Urine Occult Blood NEG Urine Nitrite NEG Urine Bilirubin NEG Urine Urobilinogen 2.0 MG/DL Urine Leukocyte Esterase NEG Urine RBC 1 /hpf Urine WBC 1 /hpf Urine Squamous Epithelial Cells <1 /hpf Urine Hyaline Casts 1 /lpf Urine Mucus FEW /lpf Microscopic Urinalysis Comment CULT NOT INDICATED Anion Gap 7 MEQ/L Estimat Glomerular Filtration Rate 126 ML/MIN Lipase 42 U/L White Blood Count 22.0 TH/MM3 Red Blood Count 2.79 MIL/MM3 Hemoglobin 9.5 GM/DL Hematocrit 28.6 % Mean Corpuscular Volume 102.5 FL Mean Corpuscular Hemoglobin 34.1 PG Mean Corpuscular Hemoglobin Concent 33.3 % Red Cell Distribution Width 22.1 % Platelet Count 174 TH/MM3 Mean Platelet Volume 10.1 FL Neutrophils (%) (Auto) 87.7 % Lymphocytes (%) (Auto) 5.9 % Monocytes (%) (Auto) 6.4 % Eosinophils (%) (Auto) 0.0 % Basophils (%) (Auto) 0.0 % Neutrophils # (Auto) 19.3 TH/MM3 Lymphocytes # (Auto) 1.3 TH/MM3 Monocytes # (Auto) 1.4 TH/MM3 Eosinophils # (Auto) 0.0 TH/MM3 Basophils # (Auto) 0.0 TH/MM3 CBC Comment DIFF FINAL Differential Comment Objective Remarks GENERAL: No acute distress. SKIN: Warm and dry. HEAD: Atraumatic. Normocephalic. EYES: Pupils equal and round. No scleral icterus. No injection or drainage. ENT: No nasal bleeding or discharge. Mucous membranes pink and moist. NECK: Trachea midline. No JVD. CARDIOVASCULAR: Regular rate and rhythm. RESPIRATORY: No accessory muscle use. Clear to auscultation. GASTROINTESTINAL: Abdomen soft, non-tender, nondistended. MUSCULOSKELETAL: Extremities without clubbing, cyanosis, or edema. NEUROLOGICAL: Awake and alert. No obvious cranial nerve deficits. PSYCHIATRIC: Appropriate mood and affect; insight and judgment normal. Medications and IVs Current Medications Medications (Trade) Dose Ordered Sig/Ambrosio Route Start Time Stop Time Status Last Admin Sodium Chloride 1,000 ml @ 42 mls/hr [id number] IV 09/05/17 12:00 09/05/17 17:42 (NS Flush) 2 ml UNSCH PRN IV FLUSH 09/05/17 12:30 (NS Flush) 2 ml BID IV FLUSH 09/05/17 21:00 09/08/17 08:15 (Tylenol) 650 mg Q4H PRN PO 09/05/17 12:30 09/07/17 18:29 (Zofran Inj) 4 mg Q6H PRN IVP 09/05/17 12:30 09/07/17 03:37 (Narcan Inj) 0.4 mg UNSCH PRN IV PUSH 09/05/17 12:30 (Senokot) 17.2 mg Q12H PRN PO 09/05/17 12:30 09/06/17 09:26 (Dulcolax Supp) 10 mg DAILY PRN RECTAL 09/05/17 12:30 (Lactulose Liq) 30 ml DAILY PRN PO 09/05/17 12:30 (Lexapro) 10 mg DAILY PO 09/06/17 09:00 09/08/17 08:14 (Prinivil) 20 mg DAILY PO 09/06/17 09:00 09/08/17 08:14 (Protonix) 40 mg DAILY PO 09/06/17 09:00 09/08/17 08:14 (Roxicodone) 30 mg Q8H PRN PO 09/05/17 15:15 09/07/17 22:30 (Lovenox Inj) 40 mg Q24H SQ 09/05/17 16:00 09/07/17 16:20 (Decadron Inj) 4 mg Q6HR IV PUSH 09/05/17 18:00 09/08/17 05:57 (Chiquis-Colace) 1 tab BID PO 09/07/17 21:00 09/07/17 22:30 A/P Assessment and Plan 1. Stage IV - Metastatic non small cell cancer with liver , lungs and bone mets and mets to T 10 vertebral body- unknown primary Continue Dexamethasone every 8 hours, pain medicine, Oncology and Radiation Oncology following, had radiation simulation yesterday and for today will have Radiation therapy. 2. Leukocytosis suspected reactive continue to monitor fever and signs of infection 3. Obesity strongly recommended diet and exercise as outpatient 4. Hypertension controlled 5. Depression continue Home anti depressant 6. GERD on PPIs. DVT prophylaxis with Lovenox. Discharge Planning Once cleared by collateral specialist. Mani Mcelroy MD Sep 08, 2017 08:25
--- NOTE | 2017-09-08 09:29 | PD.ONC.PN ---
Subjective Subjective Remarks Afebrile overnight. Patient resting in room. Underwent radiation simulation yesterday to thoracic spine yesterday. Feeling tired today. Objective Data Date Time Temp Pulse Resp B/P (MAP) Pulse Ox O2 Delivery O2 Flow Rate FiO2 09/08/17 05:05 97.3 74 18 129/72 (91) 97 09/08/17 00:42 98.3 92 16 117/64 (81) 100 09/07/17 22:25 97.3 80 16 139/75 (96) 100 09/07/17 19:54 21 09/07/17 16:17 98.3 79 16 150/81 (104) 96 09/07/17 14:24 99 09/07/17 13:49 98.7 70 16 156/81 (106) 99 09/08/17 09/08/17 09/08/17 07:00 15:00 23:00 Intake Total 600 ml Balance 600 ml Result Diagram: 09/07/17 0610 09/06/17 0806 Administered Medications Medications (Trade) Dose Ordered Sig/Ambrosio Route PRN Reason Start Time Stop Time Status Last Admin Dose Admin Sodium Chloride 1,000 ml @ 42 mls/hr [id number] IV 09/05/17 12:00 09/05/17 17:42 Sodium Chloride (NS Flush) 2 ml BID IV FLUSH 09/05/17 21:00 09/08/17 08:15 Acetaminophen (Tylenol) 650 mg Q4H PRN PO TEMP > 100.4 09/05/17 12:30 09/07/17 18:29 Ondansetron HCl (Zofran Inj) 4 mg Q6H PRN IVP NAUSEA OR VOMITING 09/05/17 12:30 09/07/17 03:37 Sennosides (Senokot) 17.2 mg Q12H PRN PO Moderate constipation 09/05/17 12:30 09/06/17 09:26 Escitalopram Oxalate (Lexapro) 10 mg DAILY PO 09/06/17 09:00 09/08/17 08:14 Lisinopril (Prinivil) 20 mg DAILY PO 09/06/17 09:00 09/08/17 08:14 Pantoprazole Sodium (Protonix) 40 mg DAILY PO 09/06/17 09:00 09/08/17 08:14 Oxycodone HCl (Roxicodone) 30 mg Q8H PRN PO PAIN SCALE 1 TO 10 09/05/17 15:15 09/07/17 22:30 Enoxaparin Sodium (Lovenox Inj) 40 mg Q24H SQ 09/05/17 16:00 09/07/17 16:20 Dexamethasone Sodium Phosphate (Decadron Inj) 4 mg Q6HR IV PUSH 09/05/17 18:00 09/08/17 05:57 Senna/Docusate Sodium (Chiquis-Colace) 1 tab BID PO 09/07/17 21:00 09/07/17 22:30 Objective Remarks GENERAL: Middle aged female, sitting up in bed ordering breakfast. SKIN: Warm and dry. HEAD: Normocephalic. EYES: No injection or drainage. NECK: Supple, trachea midline. CARDIOVASCULAR: Regular rate and rhythm RESPIRATORY: Breath sounds equal bilaterally. No accessory muscle use. GASTROINTESTINAL: Abdomen soft, non-tender, nondistended. EXTREMITIES: No cyanosis NEUROLOGICAL: awake and alert, normal speech. moving all extremities. Assessment/Plan Problem List: (1) Cancer with unknown primary site ICD Codes: C80.1 - Malignant (primary) neoplasm, unspecified Plan: --MRI brain: no mets. --s/p XRT simulation, 09/08 Hx/Workup (from initial consult, brought forward for continuity of care) 57-year -old female who was found to have an abnormal liver lesion and 2014 she was undergoing an attempted sleeve gastrectomy. Further workup included heterogenous hepatic echotexture as well as multiple hypoechoic liver masses. 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 At that time she did receive cisplatin and Gemzar. She had a PET scan done in October 2015 showed multiple masses in the liver with the largest being 6.6 cm a second liver biopsy confirmed malignancy. She had radiation in March 2016 after being found to have sacral and right ilium metastatic lesions. She presented with encephalopathy and confusion in the emergency room. Abdominal CT scan showed bony metastatic disease with possible central canal narrowing at the area of T10. A lumbar MRI showed no metastatic disease. 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 start XRT today at 4:30PM (Patient will have 10 fractions total, starting today) 2. monitor CBC Attending Statement The exam, history, and the medical decision-making described in the above note were completed with the assistance of the mid-level provider. I reviewed and agree with the findings presented. I attest that I had a [id number] encounter with the patient on the same day, and personally performed and documented my assessment and findings in the medical record. I have reviewed her medical records and imaging studies. Her back pain has improved. Start XRT to T spine today. Pt's questions were answered. Discussed with . Ghada Wing Sep 08, 2017 09:29 Romeo Velazquez MD Sep 08, 2017 18:59
[2017-09-08] MEDS: ACETAMINOPHEN 325 MG TAB PO PRN (11:41)
[2017-09-08 12:18] LABS: AUTOMATED NEUTROPHIL # 19.6 TH/MM3 (1.8-7.7); BASOPHIL % 0.1 % (0.0-2.0); HEMOGLOBIN 9.4 GM/DL (11.6-15.3); LYMPHOCYTE # 1.1 TH/MM3 (1.0-4.8); MEAN CELL VOLUME 104.3 FL (80.0-100.0); MEAN CORPUSCULAR HEMOGLOBIN 33.7 PG (27.0-34.0); MEAN CORPUSCULAR HGB CONC 32.3 % (32.0-36.0); MEAN PLATELET VOLUME 8.9 FL (7.0-11.0); MONO % 6.9 % (0.0-8.0); MONOCYTE # 1.5 TH/MM3 (0-0.9); PLATELET COUNT 178 TH/MM3 (150-450); RED BLOOD COUNT 2.78 MIL/MM3 (4.00-5.30); RED CELL DISTRIBUTION WIDTH 22.3 % (11.6-17.2); WHITE BLOOD COUNT 22.2 TH/MM3 (4.0-11.0)
[2017-09-08] MEDS: ENOXAPARIN SODIUM 40 MG/0.4 ML SYRINGE SQ SCH (16:08)
[2017-09-08] MEDS: SODIUM CHLOR 0.9% 1000 ML INJ 1,000 ML IV SCH (19:28)
[2017-09-08] MEDS: ONDANSETRON HCL 4 MG/2 ML VIAL IVP PRN (23:50)
[2017-09-09] VITALS (8 sets, daily range): BP systolic 131–159; BP diastolic 50–79; PULSE 63–90; RESP 16–24; TEMP 97.8–98.8; O2SAT 97–100
[2017-09-09] MEDS: DEXAMETHASONE SOD PHOS 4 MG/ML VIAL IV PUSH SCH (05:26)
--- NOTE | 2017-09-09 08:05 | HHI.PR ---
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 Unknown Primary, for Radiation therapy. to continue Dexamethasone every 8 hours, logging specialist and Radiation Oncology following. discussed with patient and logging specialist SHALINI, had radiation simulation yesterday and for today will have Radiation therapy not yet cleared for discharge. 09/09: Seen in her bedroom, she is confused, is able to tell me she is at [facility] and her name, but not able to answer about City, State, non present on time also. no nausea, vomit or diarrhea, vital signs stable, oxygen saturation 98%, asked for UA. BMP and CBC stat and following. discussed with Nurse Miss Brennan. Objective Vital Signs Date Time Temp Pulse Resp B/P (MAP) Pulse Ox O2 Delivery O2 Flow Rate FiO2 09/09/17 04:23 98.5 63 19 150/79 (102) 98 09/09/17 00:00 98.8 71 18 151/74 (99) 100 09/08/17 20:00 112 09/08/17 20:00 98.8 57 18 129/75 (93) 100 09/08/17 17:34 95 21 09/08/17 15:06 98.4 70 16 136/79 (98) 95 09/08/17 11:26 98.2 75 16 145/76 (99) 93 09/08/17 08:10 97.8 64 16 149/79 (102) 96 I/O 09/08/17 09/08/17 09/08/17 09/09/17 09/09/17 09/09/17 07:00 15:00 23:00 07:00 15:00 23:00 Intake Total 600 ml Balance 600 ml Intake Oral 600 ml # Voids 3 Result Diagram: 09/08/17 1139 09/06/17 0806 Imaging Last Impressions Chest CT 09/06/17 0000 Signed Impressions: Service Date/Time: Wednesday, September 06, 2017 10:12 - CONCLUSION: 1. Multiple pulmonary nodular densities indicating metastatic disease bilaterally new when compared to prior outside PET/CT of 05/07/2017. 2. No change in pericardiophrenic lymph node on the right. 3. Diffuse hepatic metastasis again noted. 4. Metastatic bone lesion of the T10 vertebral body new when compared to prior PET/CT. Fully described on recent CT abdomen and MRI thoracic spine studies. Clay Jiang MD Brain MRI 09/06/17 0000 Signed Impressions: Service Date/Time: Wednesday, September 06, 2017 15:36 - CONCLUSION: Negative exam with no evidence of brain metastasis. Vaughn Moore MD Thoracic Spine MRI 09/05/17 0000 Signed Impressions: Service Date/Time: Tuesday, September 05, 2017 09:33 - CONCLUSION: 1. 2.7 cm bone lesion in the posterior aspect of the T10 vertebral body resulting in mild expansion of the vertebral body posteriorly and extension of the mass into the central canal. There is some narrowing of the central canal with effacement of the CSF anteriorly at this level and abutment of the spinal cord. Posteriorly CSF remains visible. Minimal spinal cord signal abnormality at this level. There is also mild epidural extension of the enhancement anteriorly on the right along the posterior margins of the T9 and T11 vertebral bodies. 2. Syrinx is identified at the T5 level. Clay Jiang MD Lumbar Spine MRI 09/05/17 0000 Signed Impressions: Service Date/Time: Tuesday, September 05, 2017 09:33 - CONCLUSION: 1. No metastatic lesions identified in the lumbar spine region. There is a metastatic bone lesion in the right iliac wing. This is partially visualized. 2. Right-sided disc protrusion at L5-S1 resulting in right lateral recess narrowing and mild bilateral neural foraminal narrowing. Clay Jiang MD Abdomen/Pelvis CT 09/05/17 0000 Signed Impressions: Service Date/Time: Tuesday, September 05, 2017 07:13 - CONCLUSION: 1. Bony metastatic disease is now seen with a lucent lesion in the posterior aspect of the T10 vertebral body eroding the posterior margin of the vertebral body and resulting in possible central canal narrowing. This finding could be further evaluated with thoracic spine MRI with contrast. Right iliac wing lucent metastatic bone lesion also seen. These findings are a change from the prior study. 2. Diffuse hepatic metastatic disease again seen with no significant interval change. 3. Small amount of ascites now seen in the upper abdomen. 4. Increase in size of pericardiophrenic lymph node and portacaval lymph node. 5. Nonspecific distended gallbladder filled with contrast. Clay Jiang MD Procedures None Other Results Laboratory Tests Test 09/05/17 05:15 09/05/17 05:20 09/06/17 08:06 09/08/17 11:39 Blood Urea Nitrogen 7 MG/DL 8 MG/DL Creatinine 0.66 MG/DL 0.59 MG/DL Random Glucose 98 MG/DL 119 MG/DL Total Protein 9.3 GM/DL Albumin 2.4 GM/DL Calcium Level 8.9 MG/DL 9.2 MG/DL Alkaline Phosphatase 296 U/L Aspartate Amino Transf (AST/SGOT) 57 U/L Alanine Aminotransferase (ALT/SGPT) 11 U/L Total Bilirubin 0.9 MG/DL Sodium Level 136 MEQ/L 138 MEQ/L Potassium Level 3.6 MEQ/L 4.1 MEQ/L Chloride Level 104 MEQ/L 106 MEQ/L Carbon Dioxide Level 24.7 MEQ/L 24.6 MEQ/L Ammonia 32 MCMOL/L Urine Color YELLOW Urine Turbidity CLEAR Urine pH 6.0 Urine Specific [place] 1.033 Urine Protein 30 mg/dL Urine Glucose (UA) NEG mg/dL Urine Ketones NEG mg/dL Urine Occult Blood NEG Urine Nitrite NEG Urine Bilirubin NEG Urine Urobilinogen 2.0 MG/DL Urine Leukocyte Esterase NEG Urine RBC 1 /hpf Urine WBC 1 /hpf Urine Squamous Epithelial Cells <1 /hpf Urine Hyaline Casts 1 /lpf Urine Mucus FEW /lpf Microscopic Urinalysis Comment CULT NOT INDICATED Anion Gap 7 MEQ/L Estimat Glomerular Filtration Rate 126 ML/MIN Lipase 42 U/L White Blood Count 22.2 TH/MM3 Red Blood Count 2.78 MIL/MM3 Hemoglobin 9.4 GM/DL Hematocrit 29.0 % Mean Corpuscular Volume 104.3 FL Mean Corpuscular Hemoglobin 33.7 PG Mean Corpuscular Hemoglobin Concent 32.3 % Red Cell Distribution Width 22.3 % Platelet Count 178 TH/MM3 Mean Platelet Volume 8.9 FL Neutrophils (%) (Auto) 88.0 % Lymphocytes (%) (Auto) 5.0 % Monocytes (%) (Auto) 6.9 % Eosinophils (%) (Auto) 0.0 % Basophils (%) (Auto) 0.1 % Neutrophils # (Auto) 19.6 TH/MM3 Lymphocytes # (Auto) 1.1 TH/MM3 Monocytes # (Auto) 1.5 TH/MM3 Eosinophils # (Auto) 0.0 TH/MM3 Basophils # (Auto) 0.0 TH/MM3 CBC Comment DIFF FINAL Differential Comment Objective Remarks GENERAL: No acute distress. SKIN: Warm and dry. HEAD: Atraumatic. Normocephalic. EYES: Pupils equal and round. No scleral icterus. No injection or drainage. ENT: No nasal bleeding or discharge. Mucous membranes pink and moist. NECK: Trachea midline. No JVD. CARDIOVASCULAR: Regular rate and rhythm. RESPIRATORY: No accessory muscle use. Clear to auscultation. GASTROINTESTINAL: Abdomen soft, non-tender, nondistended. MUSCULOSKELETAL: Extremities without clubbing, cyanosis, or edema. NEUROLOGICAL: Awake and alert. No obvious cranial nerve deficits. PSYCHIATRIC: Appropriate mood and affect; insight and judgment normal. Medications and IVs Current Medications Medications (Trade) Dose Ordered Sig/Ambrosio Route Start Time Stop Time Status Last Admin Sodium Chloride 1,000 ml @ 42 mls/hr [id number] IV 09/05/17 12:00 09/05/17 17:42 (NS Flush) 2 ml UNSCH PRN IV FLUSH 09/05/17 12:30 (NS Flush) 2 ml BID IV FLUSH 09/05/17 21:00 09/08/17 19:28 (Tylenol) 650 mg Q4H PRN PO 09/05/17 12:30 09/08/17 11:41 (Zofran Inj) 4 mg Q6H PRN IVP 09/05/17 12:30 09/08/17 23:50 (Narcan Inj) 0.4 mg UNSCH PRN IV PUSH 09/05/17 12:30 (Senokot) 17.2 mg Q12H PRN PO 09/05/17 12:30 09/06/17 09:26 (Dulcolax Supp) 10 mg DAILY PRN RECTAL 09/05/17 12:30 (Lactulose Liq) 30 ml DAILY PRN PO 09/05/17 12:30 (Lexapro) 10 mg DAILY PO 09/06/17 09:00 09/08/17 08:14 (Prinivil) 20 mg DAILY PO 09/06/17 09:00 09/08/17 08:14 (Protonix) 40 mg DAILY PO 09/06/17 09:00 09/08/17 08:14 (Roxicodone) 30 mg Q8H PRN PO 09/05/17 15:15 1/17/18 04:31 (Lovenox Inj) 40 mg Q24H SQ 09/05/17 16:00 09/08/17 16:08 (Decadron Inj) 4 mg Q6HR IV PUSH 09/05/17 18:00 09/09/17 05:26 (Chiquis-Colace) 1 tab BID PO 09/07/17 21:00 09/08/17 19:28 A/P Assessment and Plan 1. Stage IV - Metastatic non small cell cancer with liver , lungs and bone mets and mets to T 10 vertebral body- unknown primary Continue Dexamethasone every 8 hours, pain medicine, Oncology and Radiation Oncology following, had radiation simulation 09/08/17 and Radiation therapy started on 09/09/17. 2. Encephalopathy asked for UA, BMP and CBC stat, Ammonia level. her AST is elevated she denies toxic habits on admission Her ammonia level elevated was started on Lactulose, discussed with Oncology 's [employer] LEAD WORKER and following closely. 3. Leukocytosis suspected reactive and Steroids, will follow today. 4. Hypertension controlled 5. Depression continue Home anti depressant 6. GERD on PPIs. 7. Obesity strongly recommended diet and exercise as outpatient DVT prophylaxis with Lovenox. Follow Ammonia level, CBC, BMP and UA for Encephalopathy, Discharge Planning Once cleared by marine specialist. Mani Mcelroy MD Sep 09, 2017 08:05
[2017-09-09] MEDS: ESCITALOPRAM OXALATE 10 MG TAB PO SCH (08:53)
[2017-09-09] MEDS: PANTOPRAZOLE SOD 40 MG DELAYED RELEASE TAB PO SCH (08:53)
[2017-09-09] MEDS: LISINOPRIL 20 MG TAB PO SCH (08:54)
[2017-09-09] MEDS: SODIUM CHLORIDE 0.9% FLUSH 10 ML FLUSH IV FLUSH SCH ×2 (08:54→20:00)
[2017-09-09] MEDS: DOCUSATE SODIUM 50 MG/SENNA 8.6 MG TAB PO SCH ×2 (08:54→19:59)
--- NOTE | 2017-09-09 09:41 | PD.ONC.PN ---
Subjective Subjective Remarks Afebrile Patient reports her pain is under control Slightly confused and asks "how many degrees is that medicine?" Objective Data Date Time Temp Pulse Resp B/P (MAP) Pulse Ox O2 Delivery O2 Flow Rate FiO2 09/09/17 04:23 98.5 63 19 150/79 (102) 98 09/09/17 00:00 98.8 71 18 151/74 (99) 100 09/08/17 20:00 112 09/08/17 20:00 98.8 57 18 129/75 (93) 100 09/08/17 17:34 95 21 09/08/17 15:06 98.4 70 16 136/79 (98) 95 09/08/17 11:26 98.2 75 16 145/76 (99) 93 Result Diagram: 09/08/17 1139 09/06/17 0806 Laboratory Results Laboratory Tests Test 09/08/17 11:39 White Blood Count 22.2 TH/MM3 Red Blood Count 2.78 MIL/MM3 Hemoglobin 9.4 GM/DL Hematocrit 29.0 % Mean Corpuscular Volume 104.3 FL Mean Corpuscular Hemoglobin 33.7 PG Mean Corpuscular Hemoglobin Concent 32.3 % Red Cell Distribution Width 22.3 % Platelet Count 178 TH/MM3 Mean Platelet Volume 8.9 FL Neutrophils (%) (Auto) 88.0 % Lymphocytes (%) (Auto) 5.0 % Monocytes (%) (Auto) 6.9 % Eosinophils (%) (Auto) 0.0 % Basophils (%) (Auto) 0.1 % Neutrophils # (Auto) 19.6 TH/MM3 Lymphocytes # (Auto) 1.1 TH/MM3 Monocytes # (Auto) 1.5 TH/MM3 Eosinophils # (Auto) 0.0 TH/MM3 Basophils # (Auto) 0.0 TH/MM3 CBC Comment DIFF FINAL Differential Comment Administered Medications Medications (Trade) Dose Ordered Sig/Ambrosio Route PRN Reason Start Time Stop Time Status Last Admin Dose Admin Sodium Chloride 1,000 ml @ 42 mls/hr [id number] IV 09/05/17 12:00 09/05/17 17:42 Sodium Chloride (NS Flush) 2 ml BID IV FLUSH 09/05/17 21:00 09/09/17 08:54 Acetaminophen (Tylenol) 650 mg Q4H PRN PO TEMP > 100.4 09/05/17 12:30 09/08/17 11:41 Ondansetron HCl (Zofran Inj) 4 mg Q6H PRN IVP NAUSEA OR VOMITING 09/05/17 12:30 09/08/17 23:50 Sennosides (Senokot) 17.2 mg Q12H PRN PO Moderate constipation 09/05/17 12:30 09/06/17 09:26 Escitalopram Oxalate (Lexapro) 10 mg DAILY PO 09/06/17 09:00 09/09/17 08:53 Lisinopril (Prinivil) 20 mg DAILY PO 09/06/17 09:00 09/09/17 08:54 Pantoprazole Sodium (Protonix) 40 mg DAILY PO 09/06/17 09:00 09/09/17 08:53 Oxycodone HCl (Roxicodone) 30 mg Q8H PRN PO PAIN SCALE 1 TO 10 09/05/17 15:15 09/09/17 04:31 Enoxaparin Sodium (Lovenox Inj) 40 mg Q24H SQ 09/05/17 16:00 09/08/17 16:08 Senna/Docusate Sodium (Chiquis-Colace) 1 tab BID PO 09/07/17 21:00 09/09/17 08:54 Objective Remarks GENERAL: Middle aged female resting in bed on left side in no acute distress HEAD: Normocephalic. EYES: No injection or drainage. NECK: Supple, trachea midline. CARDIOVASCULAR: Regular rate and rhythm RESPIRATORY: Clear posteriorly. Breathing unlabored at rest. GASTROINTESTINAL: Abdomen soft, non-tender, nondistended. EXTREMITIES: No cyanosis NEUROLOGICAL: Awake and alert. Normal speech. Mildly confused. No obvious focal deficit. Assessment/Plan Problem List: (1) Cancer with unknown primary site ICD Codes: C80.1 - Malignant (primary) neoplasm, unspecified Plan: --MRI brain: no mets. --s/p XRT simulation, 09/08 Hx/Workup (from initial consult, brought forward for continuity of care) 57-year -old female who was found to have an abnormal liver lesion and 2014 she was undergoing an attempted sleeve gastrectomy. Further workup included heterogenous hepatic echotexture as well as multiple hypoechoic liver masses. 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 At that time she did receive cisplatin and Gemzar. She had a PET scan done in October 2015 showed multiple masses in the liver with the largest being 6.6 cm a second liver biopsy confirmed malignancy. She had radiation in March 2016 after being found to have sacral and right ilium metastatic lesions. She presented with encephalopathy and confusion in the emergency room. Abdominal CT scan showed bony metastatic disease with possible central canal narrowing at the area of T10. A lumbar MRI showed no metastatic disease. 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 Continue radiation 2. Decrease Decadron to 4 mg 3 times a day by mouth 3. Noted leukocytosis; this is likely due to steroids however will also check a repeat UTI as patient has some mild confusion 4. Monitor CBC Addendum: The pt refused XRT this am; I went in to speak with her about this and she states "I just don't think I need any of that." I called and talked to pt's daughter and she called and spoke to her mom regarding the XRT- she then agreed to go. However there were no more openings in XRT at this time and we will have to resume in the am. Attending Statement The exam, history, and the medical decision-making described in the above note were completed with the assistance of the mid-level provider. I reviewed and agree with the findings presented. I attest that I had a [id number] encounter with the patient on the same day, and personally performed and documented my assessment and findings in the medical record.Report of mild confusion this am. She refused XRT this am. When I saw her, she denies any back pain. She still has abdominal pain but controlled. She is Aox3. Will reduced the decadron to reduced risk of steroid psychosis. Discussed with her the importance of XRT due to impending cord compression. She agrees to restart XRT tomorrow. Keyanna Urbina Sep 09, 2017 09:41 Romeo Velazquez MD Sep 09, 2017 13:14
[2017-09-09 10:26] LABS: AUTOMATED NEUTROPHIL # 21.4 TH/MM3 (1.8-7.7); BASOPHIL % 0.1 % (0.0-2.0); HEMATOCRIT 31.5 % (35.0-46.0); HEMOGLOBIN 10.2 GM/DL (11.6-15.3); LYMPH % 4.1 % (9.0-44.0); MEAN CELL VOLUME 103.1 FL (80.0-100.0); MEAN CORPUSCULAR HEMOGLOBIN 33.4 PG (27.0-34.0); MEAN CORPUSCULAR HGB CONC 32.4 % (32.0-36.0); MEAN PLATELET VOLUME 8.5 FL (7.0-11.0); MONOCYTE # 1.4 TH/MM3 (0-0.9); NEUT % 89.8 % (16.0-70.0); PLATELET COUNT 193 TH/MM3 (150-450); RED BLOOD COUNT 3.06 MIL/MM3 (4.00-5.30); RED CELL DISTRIBUTION WIDTH 22.3 % (11.6-17.2); WHITE BLOOD COUNT 23.9 TH/MM3 (4.0-11.0)
[2017-09-09] MEDS: SODIUM CHLOR 0.9% 1000 ML INJ 1,000 ML IV SCH (11:11)
[2017-09-09 11:14] LABS: BICARBONATE 22.9 MEQ/L (21.0-32.0); CALCIUM 9.6 MG/DL (8.5-10.1); CREATININE 0.83 MG/DL (0.50-1.00)
[2017-09-09 12:18] LABS: BILIRUBIN, URINE NEG (NEG); BLOOD, URINE NEG (NEG); CALCIUM OXALATE CRYSTALS,URINE FEW /hpf; GLUCOSE,URINE NEG (NEG); KETONE, URINE NEG (NEG); MUCUS URINE FEW /lpf (OCC); NITRITE,URINE NEG (NEG); SQUAMOUS EPITHELIAL CELL URINE 4 /hpf (0-5); URINE COLOR YELLOW (YELLW/STRAW); URINE LEUKOCYTE ESTERASE TRACE (NEG)
[2017-09-09] MEDS: DEXAMETHASONE 4 MG TAB PO SCH ×2 (12:19→18:44)
[2017-09-09] MEDS: LACTULOSE SYRUP 20 GM/30 ML CUP PO SCH ×2 (14:19→18:44)
[2017-09-09] MEDS: ENOXAPARIN SODIUM 40 MG/0.4 ML SYRINGE SQ SCH (14:19)
[2017-09-09] MEDS: ONDANSETRON HCL 4 MG/2 ML VIAL IVP PRN (16:20)
[2017-09-10] VITALS: BP 141/73; PULSE 60; RESP 16; TEMP 98.3; O2SAT 98
[2017-09-10 05:41] VITALS: BP 138/72; PULSE 74; RESP 16; TEMP 97.8; O2SAT 97
[2017-09-10 06:29] LABS: AUTOMATED NEUTROPHIL # 15.2 TH/MM3 (1.8-7.7); HEMATOCRIT 27.7 % (35.0-46.0); LYMPHOCYTE # 0.9 TH/MM3 (1.0-4.8); MEAN CELL VOLUME 104.6 FL (80.0-100.0); MEAN CORPUSCULAR HEMOGLOBIN 34.1 PG (27.0-34.0); MEAN CORPUSCULAR HGB CONC 32.6 % (32.0-36.0); MEAN PLATELET VOLUME 8.3 FL (7.0-11.0); MONO % 7.3 % (0.0-8.0); MONOCYTE # 1.3 TH/MM3 (0-0.9); NEUT % 87.7 % (16.0-70.0); PLATELET COUNT 145 TH/MM3 (150-450); RED BLOOD COUNT 2.64 MIL/MM3 (4.00-5.30); RED CELL DISTRIBUTION WIDTH 21.8 % (11.6-17.2); WHITE BLOOD COUNT 17.3 TH/MM3 (4.0-11.0)
[2017-09-10 06:44] LABS: ALT (GPT) 20 U/L (10-53); AST (GOT) 38 U/L (15-37); BICARBONATE 25.4 MEQ/L (21.0-32.0); BLOOD UREA NITROGEN 16 MG/DL (7-18); CALCIUM 9.3 MG/DL (8.5-10.1); CHLORIDE 108 MEQ/L (98-107); CREATININE 0.77 MG/DL (0.50-1.00); GLOMERULAR FILTRATION RATE 93 ML/MIN (>89); GLUCOSE,RANDOM 98 MG/DL (74-106); SODIUM (NA) 140 MEQ/L (136-145)
[2017-09-10 06:46] LABS: ALKALINE PHOSPHATASE 165 U/L (45-117); TOTAL BILIRUBIN ADULT 0.4 MG/DL (0.2-1.0)
[2017-09-10 08:00] VITALS: BP 138/72; PULSE 94; RESP 18; TEMP 98.3; O2SAT 96
[2017-09-10] MEDS: SODIUM CHLORIDE 0.9% FLUSH 10 ML FLUSH IV FLUSH SCH ×2 (09:00→19:17)
[2017-09-10] MEDS: DOCUSATE SODIUM 50 MG/SENNA 8.6 MG TAB PO SCH ×2 (09:00→19:17)
[2017-09-10] MEDS: PANTOPRAZOLE SOD 40 MG DELAYED RELEASE TAB PO SCH (09:17)
[2017-09-10] MEDS: ESCITALOPRAM OXALATE 10 MG TAB PO SCH (09:17)
[2017-09-10] MEDS: LISINOPRIL 20 MG TAB PO SCH (09:17)
[2017-09-10] MEDS: DEXAMETHASONE 4 MG TAB PO SCH ×3 (09:17→17:44)
[2017-09-10] MEDS: LACTULOSE SYRUP 20 GM/30 ML CUP PO SCH ×3 (09:17→17:44)
--- NOTE | 2017-09-10 10:00 | PD.ONC.PN ---
Subjective Subjective Remarks Afebrile overnight Patient much more lucid Agrees to have radiation Objective Data Date Time Temp Pulse Resp B/P (MAP) Pulse Ox O2 Delivery O2 Flow Rate FiO2 09/10/17 05:41 97.8 74 16 138/72 (94) 97 09/10/17 00:00 98.3 60 16 141/73 (95) 98 09/09/17 20:15 97.9 79 16 131/55 (80) 98 09/09/17 20:15 78 09/09/17 16:22 98.4 76 24 141/67 (91) 99 09/09/17 12:16 98.1 72 18 145/74 (97) 99 Result Diagram: 09/10/17 0530 09/10/17 0530 Laboratory Results Laboratory Tests Test 09/09/17 10:16 09/09/17 10:17 09/09/17 10:35 09/10/17 05:30 Ammonia 33 MCMOL/L White Blood Count 23.9 TH/MM3 17.3 TH/MM3 Red Blood Count 3.06 MIL/MM3 2.64 MIL/MM3 Hemoglobin 10.2 GM/DL 9.0 GM/DL Hematocrit 31.5 % 27.7 % Mean Corpuscular Volume 103.1 FL 104.6 FL Mean Corpuscular Hemoglobin 33.4 PG 34.1 PG Mean Corpuscular Hemoglobin Concent 32.4 % 32.6 % Red Cell Distribution Width 22.3 % 21.8 % Platelet Count 193 TH/MM3 145 TH/MM3 Mean Platelet Volume 8.5 FL 8.3 FL Neutrophils (%) (Auto) 89.8 % 87.7 % Lymphocytes (%) (Auto) 4.1 % 5.0 % Monocytes (%) (Auto) 6.0 % 7.3 % Eosinophils (%) (Auto) 0.0 % 0.0 % Basophils (%) (Auto) 0.1 % 0.0 % Neutrophils # (Auto) 21.4 TH/MM3 15.2 TH/MM3 Lymphocytes # (Auto) 1.0 TH/MM3 0.9 TH/MM3 Monocytes # (Auto) 1.4 TH/MM3 1.3 TH/MM3 Eosinophils # (Auto) 0.0 TH/MM3 0.0 TH/MM3 Basophils # (Auto) 0.0 TH/MM3 0.0 TH/MM3 CBC Comment DIFF FINAL DIFF FINAL Differential Comment Blood Urea Nitrogen 15 MG/DL 16 MG/DL Creatinine 0.83 MG/DL 0.77 MG/DL Random Glucose 114 MG/DL 98 MG/DL Calcium Level 9.6 MG/DL 9.3 MG/DL Sodium Level 137 MEQ/L 140 MEQ/L Potassium Level 3.8 MEQ/L 4.1 MEQ/L Chloride Level 105 MEQ/L 108 MEQ/L Carbon Dioxide Level 22.9 MEQ/L 25.4 MEQ/L Anion Gap 9 MEQ/L 7 MEQ/L Estimat Glomerular Filtration Rate 85 ML/MIN 93 ML/MIN Urine Color YELLOW Urine Turbidity HAZY Urine pH 6.0 Urine Specific [place] 1.026 Urine Protein TRACE mg/dL Urine Glucose (UA) NEG mg/dL Urine Ketones NEG mg/dL Urine Occult Blood NEG Urine Nitrite NEG Urine Bilirubin NEG Urine Urobilinogen LESS THAN 2.0 MG/DL Urine Leukocyte Esterase TRACE Urine RBC LESS THAN 1 /hpf Urine WBC 3 /hpf Urine Squamous Epithelial Cells 4 /hpf Urine Calcium Oxalate Crystals FEW /hpf Urine Mucus FEW /lpf Microscopic Urinalysis Comment CULT NOT INDICATED Total Protein 7.0 GM/DL Albumin 2.0 GM/DL Alkaline Phosphatase 165 U/L Aspartate Amino Transf (AST/SGOT) 38 U/L Alanine Aminotransferase (ALT/SGPT) 20 U/L Total Bilirubin 0.4 MG/DL Administered Medications Medications (Trade) Dose Ordered Sig/Ambrosio Route PRN Reason Start Time Stop Time Status Last Admin Dose Admin Sodium Chloride 1,000 ml @ 42 mls/hr [id number] IV 09/05/17 12:00 09/05/17 17:42 Sodium Chloride (NS Flush) 2 ml BID IV FLUSH 09/05/17 21:00 09/10/17 09:00 Acetaminophen (Tylenol) 650 mg Q4H PRN PO TEMP > 100.4 09/05/17 12:30 09/08/17 11:41 Ondansetron HCl (Zofran Inj) 4 mg Q6H PRN IVP NAUSEA OR VOMITING 09/05/17 12:30 09/09/17 16:20 Sennosides (Senokot) 17.2 mg Q12H PRN PO Moderate constipation 09/05/17 12:30 09/06/17 09:26 Escitalopram Oxalate (Lexapro) 10 mg DAILY PO 09/06/17 09:00 09/10/17 09:17 Lisinopril (Prinivil) 20 mg DAILY PO 09/06/17 09:00 09/10/17 09:17 Pantoprazole Sodium (Protonix) 40 mg DAILY PO 09/06/17 09:00 09/10/17 09:17 Oxycodone HCl (Roxicodone) 30 mg Q8H PRN PO PAIN SCALE 1 TO 10 09/05/17 15:15 09/10/17 05:40 Enoxaparin Sodium (Lovenox Inj) 40 mg Q24H SQ 09/05/17 16:00 09/09/17 14:19 Senna/Docusate Sodium (Chiquis-Colace) 1 tab BID PO 09/07/17 21:00 09/09/17 08:54 Dexamethasone (Decadron) 4 mg TID PO 09/09/17 13:00 09/10/17 09:17 Lactulose (Lactulose Liq) 30 ml TID PO 09/09/17 13:00 09/10/17 09:17 Objective Remarks GENERAL: Middle aged female walking around her room in no acute distress. Her sister and daughter are at the bedside. HEAD: Normocephalic. EYES: No injection or drainage. NECK: Supple, trachea midline. CARDIOVASCULAR: Regular rate and rhythm RESPIRATORY: Clear posteriorly. Breathing unlabored at rest. GASTROINTESTINAL: Abdomen soft, non-tender, nondistended. EXTREMITIES: No cyanosis NEUROLOGICAL: Awake and alert. Normal speech. Patient much more lucid today. No obvious focal deficit. Assessment/Plan Problem List: (1) Cancer with unknown primary site ICD Codes: C80.1 - Malignant (primary) neoplasm, unspecified Plan: --MRI brain: no mets. --s/p XRT simulation, 09/08 Hx/Workup (from initial consult, brought forward for continuity of care) 57-year -old female who was found to have an abnormal liver lesion and 2014 she was undergoing an attempted sleeve gastrectomy. Further workup included heterogenous hepatic echotexture as well as multiple hypoechoic liver masses. 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 At that time she did receive cisplatin and Gemzar. She had a PET scan done in October 2015 showed multiple masses in the liver with the largest being 6.6 cm a second liver biopsy confirmed malignancy. She had radiation in March 2016 after being found to have sacral and right ilium metastatic lesions. She presented with encephalopathy and confusion in the emergency room. Abdominal CT scan showed bony metastatic disease with possible central canal narrowing at the area of T10. A lumbar MRI showed no metastatic disease. 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 Continue radiation 2. Continue Decadron at current dosing 3. If patient's confusion continues to improved then she will be clear for discharge from oncology standpoint 4. Monitor CBC Attending Statement The exam, history, and the medical decision-making described in the above note were completed with the assistance of the mid-level provider. I reviewed and agree with the findings presented. I attest that I had a [id number] encounter with the patient on the same day, and personally performed and documented my assessment and findings in the medical record. Nursing staff report pt has mild confusion. When I saw pt this am, she is AOx3. She denies significant back pain. The abdominal pain is controlled. She agrees to continue XRT. Taper decadron. Leukocytosis is due to steroid. Keyanna Urbina Sep 10, 2017 10:00 Romeo Velazquez MD Sep 10, 2017 16:23
[2017-09-10] MEDS: SODIUM CHLOR 0.9% 1000 ML INJ 1,000 ML IV SCH (11:05)
[2017-09-10 12:30] VITALS: BP 134/76; PULSE 78; RESP 18; TEMP 98.7; O2SAT 99
--- NOTE | 2017-09-10 12:50 | HHI.PR ---
Subjective Remarks Follow-up Hepatic encephalopathy 09/10/17-patient seen and examined, able to answer questions, family member by the bedside 09/11/17-patient seen and examined appear stable and more talkative. Alert and oriented 2. Ammonia up today Objective Vitals Vital Signs Date Time Temp Pulse Resp B/P (MAP) Pulse Ox O2 Delivery O2 Flow Rate FiO2 09/10/17 08:00 98.3 94 18 138/72 (94) 96 09/10/17 05:41 97.8 74 16 138/72 (94) 97 09/10/17 00:00 98.3 60 16 141/73 (95) 98 09/09/17 20:15 97.9 79 16 131/55 (80) 98 09/09/17 20:15 78 09/09/17 16:22 98.4 76 24 141/67 (91) 99 I/O 09/09/17 09/09/17 09/09/17 09/10/17 09/10/17 09/10/17 07:00 15:00 23:00 07:00 15:00 23:00 Intake Total 575 ml Output Total 225 ml Balance 350 ml Intake Oral 575 ml Output Urine Total 225 ml # Bowel Movements 1 Result Diagram: 09/10/17 0530 09/10/17 0530 Imaging Last Impressions Chest CT 09/06/17 0000 Signed Impressions: Service Date/Time: Wednesday, September 06, 2017 10:12 - CONCLUSION: 1. Multiple pulmonary nodular densities indicating metastatic disease bilaterally new when compared to prior outside PET/CT of 05/07/2017. 2. No change in pericardiophrenic lymph node on the right. 3. Diffuse hepatic metastasis again noted. 4. Metastatic bone lesion of the T10 vertebral body new when compared to prior PET/CT. Fully described on recent CT abdomen and MRI thoracic spine studies. Clay Jiang MD Brain MRI 09/06/17 0000 Signed Impressions: Service Date/Time: Wednesday, September 06, 2017 15:36 - CONCLUSION: Negative exam with no evidence of brain metastasis. Vaughn Moore MD Thoracic Spine MRI 09/05/17 0000 Signed Impressions: Service Date/Time: Tuesday, September 05, 2017 09:33 - CONCLUSION: 1. 2.7 cm bone lesion in the posterior aspect of the T10 vertebral body resulting in mild expansion of the vertebral body posteriorly and extension of the mass into the central canal. There is some narrowing of the central canal with effacement of the CSF anteriorly at this level and abutment of the spinal cord. Posteriorly CSF remains visible. Minimal spinal cord signal abnormality at this level. There is also mild epidural extension of the enhancement anteriorly on the right along the posterior margins of the T9 and T11 vertebral bodies. 2. Syrinx is identified at the T5 level. Clay Jiang MD Lumbar Spine MRI 09/05/17 0000 Signed Impressions: Service Date/Time: Tuesday, September 05, 2017 09:33 - CONCLUSION: 1. No metastatic lesions identified in the lumbar spine region. There is a metastatic bone lesion in the right iliac wing. This is partially visualized. 2. Right-sided disc protrusion at L5-S1 resulting in right lateral recess narrowing and mild bilateral neural foraminal narrowing. Clay Jiang MD Abdomen/Pelvis CT 09/05/17 0000 Signed Impressions: Service Date/Time: Tuesday, September 05, 2017 07:13 - CONCLUSION: 1. Bony metastatic disease is now seen with a lucent lesion in the posterior aspect of the T10 vertebral body eroding the posterior margin of the vertebral body and resulting in possible central canal narrowing. This finding could be further evaluated with thoracic spine MRI with contrast. Right iliac wing lucent metastatic bone lesion also seen. These findings are a change from the prior study. 2. Diffuse hepatic metastatic disease again seen with no significant interval change. 3. Small amount of ascites now seen in the upper abdomen. 4. Increase in size of pericardiophrenic lymph node and portacaval lymph node. 5. Nonspecific distended gallbladder filled with contrast. Clay Jiang MD Objective Remarks GENERAL: NAD SKIN: Warm and dry. HEAD: Normocephalic. EYES: No scleral icterus. No injection or drainage. NECK: Supple, trachea midline. No JVD or lymphadenopathy. CARDIOVASCULAR: Regular rate and rhythm without murmurs, gallops, or rubs. RESPIRATORY: Breath sounds equal bilaterally. No accessory muscle use. GASTROINTESTINAL: Abdomen soft, non-tender, nondistended. MUSCULOSKELETAL: No cyanosis, or edema. BACK: Nontender without obvious deformity. No CVA tenderness. Procedures none A/P Problem List: (1) Encephalopathy ICD Code: G93.40 - Encephalopathy, unspecified (2) Pain of metastatic malignancy ICD Code: G89.3 - Neoplasm related pain (acute) (chronic) Status: Acute (3) Cancer with unknown primary site ICD Code: C80.1 - Malignant (primary) neoplasm, unspecified Assessment and Plan 57 year-old female with 1. 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 2. Hepatic Encephalopathy Currently on lactulose 3 times a day Add Rifaximin 550 mg BID 3. Leukocytosis suspected reactive and Steroids 4. Hypertension controlled 5. Depression continue Home anti depressant 6. GERD on PPIs. 7. Obesity strongly recommended diet and exercise as outpatient DVT prophylaxis with Lovenox. Rivas Iglesias MD Sep 10, 2017 12:50
[2017-09-10] MEDS: ENOXAPARIN SODIUM 40 MG/0.4 ML SYRINGE SQ SCH (17:44)
[2017-09-10 18:40] VITALS: BP 144/70; PULSE 76; RESP 16; TEMP 98; O2SAT 98
[2017-09-10 20:30] VITALS: BP 133/64; PULSE 65; PULSE 91; RESP 16; TEMP 97.6; O2SAT 95
[2017-09-11] VITALS: BP 121/55; PULSE 61; RESP 16; TEMP 97.7; O2SAT 100
[2017-09-11 04:05] VITALS: BP 125/66; PULSE 72; RESP 18; TEMP 97.8; O2SAT 99
[2017-09-11 04:22] LABS: AUTOMATED NEUTROPHIL # 19.4 TH/MM3 (1.8-7.7); BASOPHIL # 0.1 TH/MM3 (0-0.2); BASOPHIL % 0.3 % (0.0-2.0); HEMOGLOBIN 9.6 GM/DL (11.6-15.3); LYMPH % 3.2 % (9.0-44.0); LYMPHOCYTE # 0.7 TH/MM3 (1.0-4.8); MEAN CELL VOLUME 103.8 FL (80.0-100.0); MEAN CORPUSCULAR HEMOGLOBIN 34.3 PG (27.0-34.0); MEAN CORPUSCULAR HGB CONC 33.1 % (32.0-36.0); MONO % 4.7 % (0.0-8.0); NEUT % 91.8 % (16.0-70.0); PLATELET COUNT 150 TH/MM3 (150-450); RED BLOOD COUNT 2.79 MIL/MM3 (4.00-5.30); RED CELL DISTRIBUTION WIDTH 21.7 % (11.6-17.2); WHITE BLOOD COUNT 21.1 TH/MM3 (4.0-11.0)
[2017-09-11 04:54] LABS: ALBUMIN 2.3 GM/DL (3.4-5.0); ALT (GPT) 22 U/L (10-53); AST (GOT) 45 U/L (15-37); BLOOD UREA NITROGEN 15 MG/DL (7-18); CALCIUM 9.2 MG/DL (8.5-10.1); CHLORIDE 105 MEQ/L (98-107); CREATININE 0.69 MG/DL (0.50-1.00); GLOMERULAR FILTRATION RATE 105 ML/MIN (>89); GLUCOSE,RANDOM 104 MG/DL (74-106); SODIUM (NA) 137 MEQ/L (136-145)
[2017-09-11 04:55] LABS: ALKALINE PHOSPHATASE 205 U/L (45-117); TOTAL BILIRUBIN ADULT 0.5 MG/DL (0.2-1.0); TOTAL PROTEIN 7.7 GM/DL (6.4-8.2)
[2017-09-11] MEDS: ONDANSETRON HCL 4 MG/2 ML VIAL IVP PRN (06:41)
[2017-09-11 07:55] VITALS: BP 133/71; PULSE 70; RESP 18; TEMP 98; O2SAT 100
[2017-09-11 08:30] VITALS: PULSE 70
[2017-09-11] MEDS: LACTULOSE SYRUP 20 GM/30 ML CUP PO SCH ×2 (08:58→14:08)
[2017-09-11] MEDS: DEXAMETHASONE 4 MG TAB PO SCH (08:59)
[2017-09-11] MEDS: PANTOPRAZOLE SOD 40 MG DELAYED RELEASE TAB PO SCH (08:59)
[2017-09-11] MEDS: ESCITALOPRAM OXALATE 10 MG TAB PO SCH (08:59)
[2017-09-11] MEDS: DOCUSATE SODIUM 50 MG/SENNA 8.6 MG TAB PO SCH (08:59)
[2017-09-11] MEDS: SODIUM CHLORIDE 0.9% FLUSH 10 ML FLUSH IV FLUSH SCH (08:59)
[2017-09-11] MEDS: LISINOPRIL 20 MG TAB PO SCH (08:59)
--- NOTE | 2017-09-11 09:49 | PD.ONC.PN ---
Subjective Subjective Remarks Afebrile overnight. Patient really hoping to go home today. Says she is ready for radiation. Denies pain. Objective Data Date Time Temp Pulse Resp B/P (MAP) Pulse Ox O2 Delivery O2 Flow Rate FiO2 09/11/17 04:05 97.8 72 18 125/66 (85) 99 09/11/17 00:00 97.7 61 16 121/55 (77) 100 09/10/17 20:30 97.6 65 16 133/64 (87) 95 09/10/17 20:30 91 09/10/17 18:40 98.0 76 16 144/70 (94) 98 09/10/17 12:30 98.7 78 18 134/76 (95) 99 09/11/17 09/11/17 09/11/17 07:00 15:00 23:00 Intake Total 480 ml Balance 480 ml Result Diagram: 09/11/17 0410 09/11/17 0410 Laboratory Results Laboratory Tests Test 09/11/17 04:10 White Blood Count 21.1 TH/MM3 Red Blood Count 2.79 MIL/MM3 Hemoglobin 9.6 GM/DL Hematocrit 29.0 % Mean Corpuscular Volume 103.8 FL Mean Corpuscular Hemoglobin 34.3 PG Mean Corpuscular Hemoglobin Concent 33.1 % Red Cell Distribution Width 21.7 % Platelet Count 150 TH/MM3 Mean Platelet Volume 8.0 FL Neutrophils (%) (Auto) 91.8 % Lymphocytes (%) (Auto) 3.2 % Monocytes (%) (Auto) 4.7 % Eosinophils (%) (Auto) 0.0 % Basophils (%) (Auto) 0.3 % Neutrophils # (Auto) 19.4 TH/MM3 Lymphocytes # (Auto) 0.7 TH/MM3 Monocytes # (Auto) 1.0 TH/MM3 Eosinophils # (Auto) 0.0 TH/MM3 Basophils # (Auto) 0.1 TH/MM3 CBC Comment DIFF FINAL Differential Comment Blood Urea Nitrogen 15 MG/DL Creatinine 0.69 MG/DL Random Glucose 104 MG/DL Total Protein 7.7 GM/DL Albumin 2.3 GM/DL Calcium Level 9.2 MG/DL Alkaline Phosphatase 205 U/L Aspartate Amino Transf (AST/SGOT) 45 U/L Alanine Aminotransferase (ALT/SGPT) 22 U/L Total Bilirubin 0.5 MG/DL Sodium Level 137 MEQ/L Potassium Level 3.8 MEQ/L Chloride Level 105 MEQ/L Carbon Dioxide Level 24.0 MEQ/L Anion Gap 8 MEQ/L Estimat Glomerular Filtration Rate 105 ML/MIN Ammonia 45 MCMOL/L Administered Medications Medications (Trade) Dose Ordered Sig/Ambrosio Route PRN Reason Start Time Stop Time Status Last Admin Dose Admin Sodium Chloride 1,000 ml @ 42 mls/hr [id number] IV 09/05/17 12:00 09/05/17 17:42 Sodium Chloride (NS Flush) 2 ml BID IV FLUSH 09/05/17 21:00 09/11/17 08:59 Acetaminophen (Tylenol) 650 mg Q4H PRN PO TEMP > 100.4 09/05/17 12:30 09/08/17 11:41 Ondansetron HCl (Zofran Inj) 4 mg Q6H PRN IVP NAUSEA OR VOMITING 09/05/17 12:30 09/11/17 06:41 Sennosides (Senokot) 17.2 mg Q12H PRN PO Moderate constipation 09/05/17 12:30 09/06/17 09:26 Escitalopram Oxalate (Lexapro) 10 mg DAILY PO 09/06/17 09:00 09/11/17 08:59 Lisinopril (Prinivil) 20 mg DAILY PO 09/06/17 09:00 09/11/17 08:59 Pantoprazole Sodium (Protonix) 40 mg DAILY PO 09/06/17 09:00 09/11/17 08:59 Oxycodone HCl (Roxicodone) 30 mg Q8H PRN PO PAIN SCALE 1 TO 10 09/05/17 15:15 09/11/17 04:10 Enoxaparin Sodium (Lovenox Inj) 40 mg Q24H SQ 09/05/17 16:00 09/10/17 17:44 Senna/Docusate Sodium (Chiquis-Colace) 1 tab BID PO 09/07/17 21:00 09/11/17 08:59 Dexamethasone (Decadron) 4 mg TID PO 09/09/17 13:00 09/11/17 08:59 Lactulose (Lactulose Liq) 30 ml TID PO 09/09/17 13:00 09/11/17 08:58 Objective Remarks GENERAL: Middle aged female, sitting up in bed in nad. SKIN: Warm and dry. HEAD: Normocephalic. EYES: No injection or drainage. NECK: Supple, trachea midline. CARDIOVASCULAR: Regular rate and rhythm RESPIRATORY: Breath sounds equal bilaterally. No accessory muscle use. GASTROINTESTINAL: Abdomen soft, non-tender, nondistended. EXTREMITIES: No cyanosis NEUROLOGICAL: awake, alert, normal speech. Assessment/Plan Problem List: (1) Cancer with unknown primary site ICD Codes: C80.1 - Malignant (primary) neoplasm, unspecified Plan: --MRI brain: no mets. --s/p XRT simulation and start 09/08 Hx/Workup (from initial consult, brought forward for continuity of care) 57-year -old female who was found to have an abnormal liver lesion and 2014 she was undergoing an attempted sleeve gastrectomy. Further workup included heterogenous hepatic echotexture as well as multiple hypoechoic liver masses. 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 At that time she did receive cisplatin and Gemzar. She had a PET scan done in October 2015 showed multiple masses in the liver with the largest being 6.6 cm a second liver biopsy confirmed malignancy. She had radiation in March 2016 after being found to have sacral and right ilium metastatic lesions. She presented with encephalopathy and confusion in the emergency room. Abdominal CT scan showed bony metastatic disease with possible central canal narrowing at the area of T10. A lumbar MRI showed no metastatic disease. 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 Continue radiation 2. reduce Decadron to BID 3. patient clear for discharge. Attending Statement The exam, history, and the medical decision-making described in the above note were completed with the assistance of the mid-level provider. I reviewed and agree with the findings presented. I attest that I had a [id number] encounter with the patient on the same day, and personally performed and documented my assessment and findings in the medical record. (Late entry) Mild abdominal pain. Back pain is controlled. Tolerating XRT. If d/c , she can f/ u oncology clinic. Ghada Wing Sep 11, 2017 09:49 Romeo Velazquez MD Sep 11, 2017 18:02
[2017-09-11] MEDS: SODIUM CHLOR 0.9% 1000 ML INJ 1,000 ML IV SCH (10:54)
[2017-09-11] MEDS ORDERED: RIFAXIMIN 550 MG TAB PO SCH (12:30)
[2017-09-11] MEDS ORDERED: XIFA550T4 PO (12:31)
[2017-09-11] MEDS ORDERED: DEXA4TAB PO (12:31)
[2017-09-11] MEDS ORDERED: Lactulose Liq PO (12:31)
--- NOTE | 2017-09-11 12:38 | HHI.DS ---
Discharge Summary Admission Date Sep 05, 2017 at 12:17 Discharge Date: Sep 11, 2017 Admitting Diagnosis spinal cord compression, metastatic cancer (1) Encephalopathy ICD Code: G93.40 - Encephalopathy, unspecified (2) Pain of metastatic malignancy ICD Code: G89.3 - Neoplasm related pain (acute) (chronic) Status: Acute (3) Cancer with unknown primary site ICD Code: C80.1 - Malignant (primary) neoplasm, unspecified Procedures none Brief History - From Admission This is a pleasant 57 y/o female who came to ER for evaluation of abdominal pain , abdominal pain for the last three days, intermittent in nature She has diagnosis of Metastatic Liver cancer with known primary, decided not to have chemotherapy, she is been followed by patient resource specialist Doctor Marcus, also developed some grisel of Encephalopathy, Daughter concerned about the possible Ammonia level elevation that she had already in the past, Urinary tract infection due to similar symptoms, so decided to bring her to ER, She states that the pain in her abdomen is intermittent this time started yesterday with intensity of 7/10, Sharp sensation, on inferior quadrants in her abdomen, has it for 3 years. in Emergency room found Bony metastatic lesion in the posterior aspect of the T10 vertebral body eroding the posterior margin of the vertebral body and resulting in possible central canal narrowing, small amount of ascites in the upper abdomen, increased in size of pericardiophrenic lymph node and portacaval Discussed by ER physician with Neurosurgery specialist and did recommended Radiation no surgical management, as per Doctor Skylar Stephenson fire protection specialist he will see the patient hospitalized and give recommendations. CBC/BMP: 09/11/17 0410 09/11/17 0410 Significant Findings Laboratory Tests Test 09/09/17 10:16 09/09/17 10:17 09/09/17 10:35 09/10/17 05:30 Ammonia 33 MCMOL/L (11-32) White Blood Count 23.9 TH/MM3 (4.0-11.0) 17.3 TH/MM3 (4.0-11.0) Red Blood Count 3.06 MIL/MM3 (4.00-5.30) 2.64 MIL/MM3 (4.00-5.30) Hemoglobin 10.2 GM/DL (11.6-15.3) 9.0 GM/DL (11.6-15.3) Hematocrit 31.5 % (35.0-46.0) 27.7 % (35.0-46.0) Mean Corpuscular Volume 103.1 FL (80.0-100.0) 104.6 FL (80.0-100.0) Red Cell Distribution Width 22.3 % (11.6-17.2) 21.8 % (11.6-17.2) Neutrophils (%) (Auto) 89.8 % (16.0-70.0) 87.7 % (16.0-70.0) Lymphocytes (%) (Auto) 4.1 % (9.0-44.0) 5.0 % (9.0-44.0) Neutrophils # (Auto) 21.4 TH/MM3 (1.8-7.7) 15.2 TH/MM3 (1.8-7.7) Monocytes # (Auto) 1.4 TH/MM3 (0-0.9) 1.3 TH/MM3 (0-0.9) Random Glucose 114 MG/DL (74-106) Estimat Glomerular Filtration Rate 85 ML/MIN (>89) Urine Turbidity HAZY (CLEAR) Urine Leukocyte Esterase TRACE (NEG) Urine Calcium Oxalate Crystals FEW /hpf (NONE) Urine Mucus FEW /lpf (OCC) Mean Corpuscular Hemoglobin 34.1 PG (27.0-34.0) Platelet Count 145 TH/MM3 (150-450) Lymphocytes # (Auto) 0.9 TH/MM3 (1.0-4.8) Albumin 2.0 GM/DL (3.4-5.0) Alkaline Phosphatase 165 U/L (45-117) Aspartate Amino Transf (AST/SGOT) 38 U/L (15-37) Chloride Level 108 MEQ/L (98-107) Test 09/11/17 04:10 White Blood Count 21.1 TH/MM3 (4.0-11.0) Red Blood Count 2.79 MIL/MM3 (4.00-5.30) Hemoglobin 9.6 GM/DL (11.6-15.3) Hematocrit 29.0 % (35.0-46.0) Mean Corpuscular Volume 103.8 FL (80.0-100.0) Mean Corpuscular Hemoglobin 34.3 PG (27.0-34.0) Red Cell Distribution Width 21.7 % (11.6-17.2) Neutrophils (%) (Auto) 91.8 % (16.0-70.0) Lymphocytes (%) (Auto) 3.2 % (9.0-44.0) Neutrophils # (Auto) 19.4 TH/MM3 (1.8-7.7) Lymphocytes # (Auto) 0.7 TH/MM3 (1.0-4.8) Monocytes # (Auto) 1.0 TH/MM3 (0-0.9) Albumin 2.3 GM/DL (3.4-5.0) Alkaline Phosphatase 205 U/L (45-117) Aspartate Amino Transf (AST/SGOT) 45 U/L (15-37) Ammonia 45 MCMOL/L (11-32) PE at Discharge GENERAL: NAD SKIN: Warm and dry. HEAD: Normocephalic. EYES: No scleral icterus. No injection or drainage. NECK: Supple, trachea midline. No JVD or lymphadenopathy. CARDIOVASCULAR: Regular rate and rhythm without murmurs, gallops, or rubs. RESPIRATORY: Breath sounds equal bilaterally. No accessory muscle use. GASTROINTESTINAL: Abdomen soft, non-tender, nondistended. MUSCULOSKELETAL: No cyanosis, or edema. BACK: Nontender without obvious deformity. No CVA tenderness. Hospital Course While in the hospital, patient was treated for: 1. 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 Oncology and Radiation Oncology were consulted and Although patient was supposed to start with radiation therapy on 09/09/17, however she did refuse it. 2. Hepatic Encephalopathy She was started on lactulose 3 times a day as well as the rifaximin with monitoring of ammonia level 3. Leukocytosis suspected reactive and Steroids 4. Hypertension controlled with outpatient medication 5. Depression and patient was continued on her antidepressant medication 6. GERD on PPIs. DVT prophylaxis with Lovenox. Pt Condition on Discharge: Stable Discharge Disposition: Discharge Home Discharge Time: <= 30 minutes Discharge Instructions DIET: Follow Instructions for: Heart Healthy Diet Activities you can perform: Regular-No Restrictions Follow up Referrals: Oncology PCP Follow-up - 1 Week New Medications: Dexamethasone (Dexamethasone) 4 Mg Tab 4 MG PO BID for Immunosuppression, #14 TAB Rifaximin (Xifaxan) 550 Mg Tab 550 MG PO BID for Infection, #60 TAB 3 Refills [Lactulose Liq] () 30 ML SYRP 30 ML PO TID for 30 Days, 3 Refills Continued Medications: Escitalopram (Lexapro) 10 Mg Tab 10 MG PO DAILY, #30 TAB 0 Refills Lisinopril (Lisinopril) 20 Mg Tab 20 MG PO DAILY, #30 TAB 0 Refills Oxycodone (Oxycodone) 30 Mg Tab 30 MG PO Q8H PRN for PAIN, TAB 0 Refills Pantoprazole (Protonix) 40 Mg Tab 40 MG PO DAILY for Reflux, #30 TAB 0 Refills Discontinued Medications: Alprazolam (Xanax) Unknown Strength Tab Unknown Dose PO BID PRN for ANXIETY, TAB 0 Refills Rivas Iglesias MD Sep 11, 2017 12:38
[2017-09-11] MEDS ORDERED: SODIUM CHLORIDE 0.9% FLUSH 10 ML FLUSH IV FLUSH PRN (14:15)
[2017-09-11] MEDS ORDERED: DEXAMETHASONE 4 MG TAB PO SCH (21:00)
== END 2017-09-11 14:49 | disposition home or self-care (01) | DRG 543 ==
LOC: NEPC 02:33 → NEDA 12:17 → N06B 15:30 → HCIN 09-06 21:41
PROVIDERS: ADMIT Hospitalist; ATTEND Hospitalist
DX: C79.51 Secondary malignant neoplasm of bone (principal); G95.20 Unspecified cord compression; C78.7 Secondary malignant neoplasm of liver and intrahepatic bile duct; C80.1 Malignant (primary) neoplasm, unspecified; D69.6 Thrombocytopenia, unspecified; K72.90 Hepatic failure, unspecified without coma; G89.3 Neoplasm related pain (acute) (chronic); E66.9 Obesity, unspecified; I10 Essential (primary) hypertension; F32.9 Major depressive disorder, single episode, unspecified; K21.9 Gastro-esophageal reflux disease without esophagitis; F41.9 Anxiety disorder, unspecified; D50.9 Iron deficiency anemia, unspecified; Z92.21 Personal history of antineoplastic chemotherapy; Z92.3 Personal history of irradiation
CPT/HCPCS: 70553; 71250; 72157; 72158; 74176; 80048; 80053; 81001; 82140; 83690; 85025; 96374; 96375; A9579; J1100; J1170; J1642; J1650; J2060; J2405; J7030; J8540; Q0169

== ENCOUNTER 2017-09-11 23:03 | Emergency (ER) | payer OTHER, MEDICAID | END 2017-09-12 03:14 | disposition home or self-care (01) | LOC: NEPC 23:03 | DX: R06.02 Shortness of breath (principal); F41.9 Anxiety disorder, unspecified; F32.9 Major depressive disorder, single episode, unspecified; K21.9 Gastro-esophageal reflux disease without esophagitis; I10 Essential (primary) hypertension | CPT/HCPCS: 71046; 99283 ==